=== PATIENT | female | born 1970 | race Caucasian/White ===

== ENCOUNTER 2023-05-31 13:58 | Inpatient (IN) | payer BC, SELFPAY ==
[2023-05-31] VITALS (9 sets, daily range): BP systolic 113–151; BP diastolic 55–106; PULSE 86–105; RESP 16–21; TEMP 36.6–37.7; O2SAT 90–98; BMI 40.2
--- NOTE | 2023-05-31 18:47 | ED.GENADULT ---
HPI - General Adult General Date Seen: 05/31/23 Chief complaint: Laceration/Wound Stated complaint: L leg wound draining-sent from Time Seen by Provider: 05/31/23 18:25 History of Present Illness HPI narrative: This is a previously healthy 52-year-old female who is referred to the ER today from the [facility] our urgent care for evaluation of a infection of the cutaneous tissue of her left upper inner thigh. Per the notes from [facility] urgent care 05/31, Notes from all [facility] Urgent Care, Dr. Mckinney from 05/31-today. Ellie Odonnell is a 52 y.o. female who presents for a possible infection and bump on her left inner thigh. She reports that 5 days ago that while in the shower she noticed a red bump on inner thigh the size of a pencil eraser. She thought it was an ingrown hair so she squeezed it. It flattened and she thought it would resolve on its own. However it continued to be bothersome and the next couple of days she had chills and body aches and felt very fatigued and unwell, did not want to get out of bed. She had no URI symptoms. So yesterday she did a televisit and was started on clindamycin for a skin infection but was instructed to be seen in person. ? Today she tells me that it is worsening overall. She has significant redness and firmness in her left inner thigh. The redness had been extending all the way down to her knee but that has shrunk up several inches now. However the firm mass underneath the skin is extending from her entire anterior aspect of her left thigh into the groin nearing the perineum and this is making her nervous. She has been on routine Tylenol and Motrin to help with malaise but still does not feel very well. She denies candy fevers but has been on antipyretics this entire time. She noticed that the wound is draining and it is very odorous. She denies any history of cellulitis or MRSA. Exam: Skin: Significant flat erythema diffusely over inner aspect of entire left thigh extending midway down her thigh. This area is warm. She has a palpable subcutaneous mass with depth and girth and discrete borders that is parallel to her left groin extending from just below her left hip bone all the way near her perineum, about 6 inches in length and 3 inches in width from what I can tell on superficial palpation. It is tender to palpation. She does have an open wound in the middle of this area, about 3 mm in diameter that is draining clear yellow odorous fluid which I did culture. No other rash or abnormalities noted on exposed skin. exam consistent with significant cellulitis and concerning for underlying abscess. Symptoms have progressed rapidly and she has been feeling unwell for several days. She has not had significant improvement with several doses of clindamycin, which is not surprising, yet the underlying mass has been enlarging per the patient. She is not febrile here but she is tachycardic and has been taking Tylenol and Motrin routinely. She does not feel well. I am concerned that she is failing outpatient therapy and she is worsening quickly. We discussed this in depth. I feel that she needs a higher level of care and imaging to evaluate for possible underlying abscess as there is no superficial abscess for me to drain today. She is in agreement with this and will drive to [facility] ER for further evaluation. Patient has no history of MRSA or immunodeficiency. She noticed that she had a small bump on her proximal left medial inner thigh a couple of days ago. She squeezed the bump in express some purulent fluid from it. Since then she has had ongoing symptoms infection. Has been mildly uncomfortable. She did have some mild chills and some fatigue over the weekend. She was much sleepier than normal. No fevers. No rigors. She noted a small area of redness around the area where she had squeeze the bump that began a couple of days ago. It was beginning to get bigger yesterday. She was seen in the [facility] urgent care and put on clindamycin. She had 2 doses of oral clindamycin yesterday and 2 more doses this morning. Despite that the area of redness on her leg has been spreading. She is now bright red essentially from her groin all the way down to her knee. Today she is actually feeling systemically better. She is not as fatigued or sleepy. She is not having any chills. She went back to the urgent care today and because the redness was still spreading despite the antibiotics. She was referred here to the ER for further evaluation with suspicion for possible abscess. She has no history of diabetes, cancer, chemo, immunosuppression. No history of MRSA. No other symptoms. No abdominal pain. No rash on her abdomen or buttock. No rash on the right leg Related Data Home Medications Medication Instructions Recorded Confirmed clindamycin HCl 300 mg capsule 300 mg PO 3XD 05/31/23 05/31/23 rosuvastatin 10 mg tablet 10 mg PO QPM 05/31/23 05/31/23 Allergies Allergy/AdvReac Type Severity Reaction Status Date / Time amoxicillin Allergy Hives Verified 05/31/23 14:13 [facility] Social History Smoking Status: Never smoker Non-prescribed substance use: denies use Exam Narrative: Exam Narrative: Constitutional: Appears well-developed and well-nourished. Alert. Conversant. Non toxic. HENT: Head: Atraumatic. Nose: Nose normal. Mouth/Throat: Oral mucosa is clear and moist. no trismus. Pharynx normal. Tonsils symmetric. No tonsillar enlargement, erythema, or exudate. Eyes: Conjunctivae normal. EOM normal. Pupils equal, round, and reactive to light. No scleral icterus. Neck: Normal range of motion. Neck supple. No tracheal deviation present. Cardiovascular: Normal rate, regular rhythm. No gallop. No friction rub. No murmur heard. Symmetric radial artery pulses Pulmonary/Chest: Effort normal. No stridor. No respiratory distress. No wheezes. No rales. No rhonchi . No tenderness. Abdominal: Soft. Bowel sounds normal. No distension. No mass. No tenderness. No rebound. No guarding. Musculoskeletal: RUE: Normal range of motion. No tenderness. No deformity LUE: Normal range of motion. No tenderness. No deformity RLE: Normal range of motion. No edema. No tenderness. No deformity LLE: Normal range of motion. No edema. No tenderness. No deformity Lymph: No cervical adenopathy. Neurological: Alert and oriented to person, place, and time. Normal strength. CN II-VII intact. No sensory deficit. GCS eye subscore is 4. GCS verbal subscore is 5. GCS motor subscore is 6. Normal coordination Skin: Initial exam performed in the ER hallway bed because the ER was full. Best efforts were taken to respect the patient's modesty. Patient has bright red erythema of her left thigh especially on the medial aspect as from her inguinal crease and groin all the way down almost to her knee. There is a couple of small areas of blistering on the skin. No definite pustules. At the proximal into the thigh about 3-4 cm distal to the groin crease there is a small 1 cm area of opening that is draining a small amount of some yellow purulent liquid he fluid. In palpating around that area there is roughly a 4 x 10 cm area of firm indurated tissue but no definite fluctuance. No gas or crepitus in the soft tissue. There is no redness above the groin crease/inguinal ligament. The redness does wrap around the medial thigh. It does not involve the back of her leg or buttock. Skin is warm and dry. No rash noted. No pallor. Normal capillary refill. Psychiatric: Normal mood. Normal affect. Const: Vital Signs, click to edit/add: Vital Signs - 24 hr 05/31/23 14:06 05/31/23 21:37 Temperature 99.9 F H 97.9 F Pulse Rate [Pulse Oximeter] 98 105 H Respiratory Rate 16 16 Blood Pressure [Ri ght Upper Arm] 151/79 H 148/70 H Pulse Oximetry 97 98 Oxygen Delivery Me thod Room Air Room Air Course Vital Signs Vital signs: Initial Vital Signs Temperature 99.9 F H 05/31/23 14:06 Temperature Source Temporal Artery Scan 05/31/23 14:06 Pulse Rate 98 05/31/23 14:06 Respiratory Rate 16 05/31/23 14:06 Blood Pressure 151/79 H 05/31/23 14:06 Blood Pressure Mean 103 05/31/23 14:06 Blood Pressure Position Sitting 05/31/23 14:06 Pulse Oximetry 97 05/31/23 14:06 Oxygen Delivery Method Room Air 05/31/23 14:06 Vital Signs Temperature 99.9 F H 05/31/23 14:06 Pulse Rate 98 05/31/23 14:06 Respiratory Rate 16 05/31/23 14:06 Blood Pressure 151/79 H 05/31/23 14:06 Pulse Oximetry 97 05/31/23 14:06 Oxygen Delivery Method Room Air 05/31/23 14:06 Temperature 97.9 F 05/31/23 21:37 Pulse Rate 105 H 05/31/23 21:37 Respiratory Rate 16 05/31/23 21:37 Blood Pressure 148/70 H 05/31/23 21:37 Pulse Oximetry 98 12/05/23 21:37 Oxygen Delivery Method Room Air 05/31/23 21:37 Medications Administered Medications: Generic Name Dose Route Start Last Admin Trade Name Sebas PRN Reason Stop Dose Admin Ceftriaxone Sodium 1 gm/ 100 mls @ 200 mls/hr 05/31/23 19:00 05/31/23 20:49 Sodium Chloride IVPB Infused Q24H JYOTI Infusion Discontinued Medications Generic Name Dose Route Start Last Admin Trade Name Sebas PRN Reason Stop Dose Admin Clindamycin Phosphate 900 mg 05/31/23 21:14 05/31/23 22:44 Clindamycin 900 Mg/50 Ml-D5w IVPB 05/31/23 21:15 900 mg ONCE ONE Administration Sodium Chloride 1,000 mls @ 1,000 mls/hr 05/31/23 19:00 05/31/23 20:18 0.9 % Sodium Chloride 1000 Ml IV 05/31/23 19:59 1,000 mls/hr .Q1H JYOTI Administration Vancomycin HCl 2,000 mg/ 520 mls @ 260 mls/hr 05/31/23 18:59 05/31/23 20:48 Sodium Chloride IVPB 05/31/23 19:00 260 mls/hr ONCE ONE Administration Protocol Medical Decision Making MDM Narrative Medical decision making narrative: Very pleasant previously healthy 52-year-old female presenting to the ER today for redness and swelling of her left thigh that began a couple of days ago. She has already been on about 24 hours of oral clindamycin but despite that therapy is getting worse. Initial concern here was for possible cellulitis with a resistant pathogen versus possible abscess needing drainage. On my initial exam I did not appreciate any definite fluctuance or crepitus in the soft tissue. Bedside ultrasound was negative for abscess. Because of the extent of the redness and the or widespread we did establish an IV and check labs. We also obtain CT scan of her thigh to further evaluate for possible deeper soft tissue infection. She has a mild leukocytosis and a mild hyponatremia with a sodium of 134. On my read, CT scan shows evidence for gas in the soft tissue, concerning for a necrotizing soft tissue infection. Immediately upon identifying this finding I contacted our surgeon, Dr. Dexter. She reviewed the images and agrees. She will come here to the ER for emergent surgical debridement. At the time of this dictation we are still awaiting the radiologist interpretation of her CT. At this point although she has a low-grade fever and leukocytosis she has stable blood pressure. She has mild tachycardia but no evidence for septic shock. Discussed with the patient in person, and her , by phone, about the concerning findings on the CT and the need for urgent surgical debridement of the necrotic tissue. They agree and verbalized their consent. We discussed possible transfer to a tertiary care center for an infection such as this. However my advice would be that she at least have the Urgent initial surgical debridement to done here because it would likely take many hours in order to affect transfer and get her to the OR in the [facility]. That may be an unreasonable delay. There are any has been delay while she was waiting here in the ER lobby before I could see her today. They verbalized her understanding and agreement. She will be going to the OR with Dr. Dubon, roughly 10:00 p.m.. Patient was transferred to the OR for surgical debridement before formal CT report came back from Radiology. Lab Data Labs: Lab Results 05/31/23 05/31/23 Range/Units 13:35 18:59 WBC 17.22 H (4.50-11.00) K/uL RBC 4.12 (4.00-5.20) m/uL Hgb 12.7 (12.0-16.0) gm/dL Hct 38.0 (33.0-51.0) % MCV 92 (80-100) fL MCH 31 (26-34) pg MCHC 33 (32-36) gm/dL RDW Coeff of Tyra 13.3 (11.5-15.5) % Plt Count 231 (140-440) K/uL Neut % (Auto) 81.5 H (42.0-72.0) % Lymph % (Auto) 9.3 L (20-44) % [place] % (Auto) 7.4 (0.0-11.0) % Eos % (Auto) 1.3 (0.0-7.0) % Baso % (Auto) 0.3 (0.0-3.0) % Neut # (Auto) 14.00 H (1.7-7.0) K/uL Lymph # (Auto) 1.60 (0.90-2.90) K/uL [place] # (Auto) 1.30 H (0.00-0.90) K/UL Eos # (Auto) 0.20 (0.00-0.50) K/uL Baso # (Auto) 0.10 (0.00-0.30) K/uL Abs Immat Gran (auto) 0.00 (0.00-0.30) K/uL Imm/Tot Granulo (auto) 0.2 % Sodium 134 L (135-149) mmol/L Potassium 3.5 L (3.6-5.1) mmol/L Chloride 104 (96-114) mmol/L Carbon Dioxide 23 (20-32) mmol/L Anion Gap 7 (7-15) mEq/L BUN 10 (7-30) mg/dL Creatinine 0.5 (0.5-1.5) mg/dL Estimated Creat Clear 142.33 Estimated GFR 113 ml/min Glucose 112 (60-115) mg/dL Lactate 0.9 (0.5-1.9) mmol/L Calcium 8.5 (8.4-10.6) mg/dL Imaging Data CT left femur/thigh: Attestation: I have reviewed the pertinent imaging results. My impression: Soft tissue stranding in the left medial thigh as well as soft tissue subcutaneous emphysema, concerning for necrotizing infection. I contacted surgery, Dr. Dexter immediately upon reviewing the images myself. She reviewed the images and agrees. She came expeditiously here to the ER to take the patient for surgical debridement. Subsequently formal radiology report came back from x-ray. At that point the patient was already in the OR. Radiologist's impression: Findings: There is medial skin thickening superiorly in the left leg with subcutaneous edema. Subcutaneous air also present in the upper medial 5. No deep tissue inflammation. No fluid collection to suggest abscess. No sign of osteomyelitis or other osseous abnormality. Impression: Cellulitis in the upper medial left thigh with subcutaneous edema and air suggesting the possibility of necrotizing tissue. No deep tissue inflammation and no abscess. Discharge Plan Discharge Clinical Impression: Necrotizing soft tissue infection, Acute hyponatremia Procedures Ultrasound Skin/Soft Tissue exam #1: Anatomical areas examined: Left thigh Indications: soft tissue pain, soft tissue swelling and soft tissue redness Exam type: limited soft tissue ultrasound Findings: other (There does appear to be some vague hypoechoic material in the soft tissue but no discrete abscess or drainable fluid collection.) Impression: cellulitis (Images saved to the ultrasound hard dry.)
--- NOTE | 2023-05-31 19:42 | CRLHL7_ITS ---
For Patients: As a result of the Cures Act, medical imaging exams and procedure reports are released immediately into your electronic medical record. You may view this report before your referring provider. If you have questions, please contact your health care provider. Indication: Left thigh swelling and redness. Technique: CT extremity left femur with 137 cc Isovue 370 IV contrast. Comparison: None. Findings: There is medial skin thickening superiorly in the left leg with subcutaneous edema. Subcutaneous air also present in the upper medial 5. No deep tissue inflammation. No fluid collection to suggest abscess. No sign of osteomyelitis or other osseous abnormality. Impression: Cellulitis in the upper medial left thigh with subcutaneous edema and air suggesting the possibility of necrotizing tissue. No deep tissue inflammation and no abscess. Please note that all CT scans at this facility use dose modulation, iterative reconstruction, and/or weight-based dosing when appropriate to reduce radiation dose to as low as reasonably achievable. Dictated by Sebastien Kumar MD @ 05/31/2023 10:35:08 PM (Electronically Signed)
[2023-05-31 19:51] LABS: Lactate* 0.9 mmol/L (0.5-1.9)
[2023-05-31 19:52] LABS: Basophils Percent Auto 0.3 % (0.0-3.0); Eosinophils Percent Auto 1.3 % (0.0-7.0); Hemoglobin* 12.7 gm/dL (12.0-16.0); Immature Granulocytes Pct Auto 0.2 %; Lymphocytes Percent Auto 9.3 % (20-44); Mean Corpuscular HGB Conc 33 gm/dL (32-36); Mean Corpuscular Hemoglobin 31 pg (26-34); Mean Corpuscular Volume 92 fL (80-100); Monocytes Percent Auto 7.4 % (0.0-11.0); Neutrophils Percent Auto 81.5 % (42.0-72.0); Platelet Count* 231 K/uL (140-440); RDW Coefficient of Variation % 13.3 % (11.5-15.5); Red Blood Count 4.12 m/uL (4.00-5.20); White Blood Count* 17.22 K/uL (4.50-11.00)
[2023-05-31 20:09] LABS: Chloride* 104 mmol/L (96-114); Potassium* 3.5 mmol/L (3.6-5.1); Sodium* 134 mmol/L (135-149)
[2023-05-31 20:11] LABS: Creatinine* 0.5 mg/dL (0.5-1.5); Est. Creatinine Clearance* 142.33; Estimated Glomerular Filt Rate 113 ml/min
[2023-05-31 20:12] LABS: Anion Gap 7 mEq/L (7-15); Blood Urea Nitrogen* 10 mg/dL (7-30); Carbon Dioxide* 23 mmol/L (20-32); Glucose* 112 mg/dL (60-115)
[2023-05-31 20:13] LABS: Calcium* 8.5 mg/dL (8.4-10.6)
[2023-05-31 20:15] LABS: Slide Review Reflex No
[2023-05-31] MEDS: cefTRIAXone 1 GM in 0.9 % SODIUM CHLORIDE Mini-bag 100 ML IVPB (20:18)
[2023-05-31] MEDS: 0.9 % SODIUM CHLORIDE 1000 ml 1,000 ML IV (20:18)
--- NOTE | 2023-05-31 22:16 | PM.GSHP ---
History of Present Illness History of Present Illness Date Seen: 05/31/23 Chief complaint: L leg wound draining-sent from Narrative: Ellie Odonnell is a 52 year old female who presented to the emergency department with rapidly expanding infection of the upper left thigh. She states that on Tuesday she 1st noticed a bump of her upper thigh. On Tuesday there was a small pimple about the size of the top of an eraser in the area. She initially thought this was an ingrown hair in try to squeeze the pimple, but was unable to pop it. On Tuesday she started to have fever/chills at home. She also notice that there was a rapidly expanding area of redness on her leg. She did have some pain to the area, but this did not require any pain medication and she was still able to walk without difficulty. She did a telemedicine visit on Tuesday and was prescribed some oral clindamycin. She started to take the antibiotic, but felt like things were still getting worse so presented to her primary care provider earlier today. Her primary care provider then advised her to go to the emergency department for further evaluation. She has never had anything like this before. No personal history of diabetes. She is otherwise healthy. Review of Systems Status of ROS: Reports: 10 or more systems reviewed and unremarkable except as noted in History and below PFSH PFSH Social History Smoking Status: Never smoker Non-prescribed substance use: denies use Meds Home Medications and Allergies Home Medications Medication Instructions Recorded Confirmed Type clindamycin HCl 300 mg capsule 300 mg PO 3XD 05/31/23 05/31/23 History rosuvastatin 10 mg tablet 10 mg PO QPM 05/31/23 05/31/23 History Allergies Allergy/AdvReac Type Severity Reaction Status Date / Time amoxicillin Allergy Hives Verified 05/31/23 14:13 Exam Narrative: Exam Narrative: General: Alert and oriented, nontoxic in appearance Respiratory: Equal breath rise, maintained on room air CV: Well perfused, regular rhythm and rate Extremities: Left upper thigh significant erythema and induration going from just above the knee to the groin. Near the groin is a 6 cm area of significant induration and firmness. There was also a pinpoint opening with some purulent drainage noted. Area is hot to the touch and tender for the patient. Const: Vital Signs, click to edit/add: Vital Signs - 24 hr 05/31/23 14:06 05/31/23 21:37 Temperature 99.9 F H 97.9 F Pulse Rate [Pulse Oximeter] 98 105 H Respiratory Rate 16 16 Blood Pressure [Ri ght Upper Arm] 151/79 H 148/70 H Pulse Oximetry 97 98 Oxygen Delivery Me thod Room Air Room Air Results Results Labs: Leukocytosis (17). Mild hyponatremia sodium 134. Additional studies: CT of the left leg: The still waiting radiology review. Imaging was reviewed by myself with evidence of edema and cellulitic changes from just above the knee to the groin. Near the groin is gas within the subcutaneous tissues, concerning for a necrotizing infection. Assessment and Plan Assessment and plan (1) Necrotizing soft tissue infection: Status: Acute Plan Patient is a 52-year-old female with clinical history and workup concerning for a necrotizing soft tissue infection. This was discussed at length the patient and her . Recommendations at this time are to emergently go to the operating room for excisional debridement and washout of the affected area. Risks and benefits of operative intervention were discussed at length with the patient. Risks included, but were not limited to: Bleeding, infection, risk of damage to surrounding structures and possible need for additional procedures. She has been started on broad-spectrum IV antibiotics in the emergency department, will plan to continue these while she is in the hospital. Will also consult the hospitalist service. -NPO -will plan to write for admission orders postoperatively -patient to go emergently to the operating room for excisional debridement, left thigh.
[2023-05-31] MEDS: CLINDAMYCIN 900 MG/50 ML-D5W IVPB (22:44)
--- NOTE | 2023-05-31 23:04 | P.ANES_ITS ---
Anesthesia Charges Start Date/Time Anesthesia Start Date: 05/31/23 Anesthesia Start Time: 22:27 Stop Date/Time Anesthesia Stop Date: 05/31/23 Anesthesia Stop Time: 23:32 Summary Emergency: [employer]
--- NOTE | 2023-05-31 23:35 | PM.GSPRC ---
Operative Note Pre-op diagnosis: Necrotizing soft tissue infection, left thigh Post-op diagnosis: Same Type of Procedure: Excision all debridement and washout, left thigh infection Indications: Patient is a 52-year-old female who presented to the emergency department with a rapidly worsening infection of the left medial thigh. Clinical history and workup concerning for possible necrotizing soft tissue infection. Recommendations to proceed emergently to the operating room for washout. Risks and benefits of the procedure were discussed at length with the patient and her . All questions were addressed with patient agreeing to proceed. Procedure Description: After discussing the risks and benefits of the procedure, the patient signed informed consent.? The operative site was marked and the patient was brought to the operating room and placed on the operating table in supine position.? Care was taken to pad the patient's pressure points.?? The patient was then intubated by anesthesia.?? The operative site was then prepped and draped in the usual sterile fashion.? A time-out was then performed. On the left medial upper thigh an area of significant induration was appreciated with a pinpoint opening of foul smelling, purulent drainage noted. A culture was obtained from this and sent for anaerobic/aerobic and Gram stain. A cruciate incision was made over this area. Blunt dissection was utilized to define the underlying abscess cavity. A moderate amount of dishwater fluid was obtained from the underlying subcutaneous tissue. The incision was then extended medial and lateral to evaluate the infection further. All necrotic subcutaneous fat was removed with sharp debridement down to healthy, bleeding tissue. The wound extended inferiorly about 3 cm and superiorly 4 cm. No evidence of fascial or muscle involvement. All cavities were connected through blunt and sharp dissection. The cavity was irrigated with the Pulsavac, 3 L normal saline. Hemostasis was assured with electrocautery. The resulting wound measured 9 cm by 3 cm by 4 cm deep. There is 3 cm of undermining inferior and 4 cm of undermining superior. The wound was packed with Vashe soaked gauze and an outer Mepilex applied. Sterile dressings were then applied. ? The patient was then woken and transported to the recovery area in stable condition. ? The patient tolerated the procedure well. Findings: Necrotizing soft tissue infection of the left medial thigh. Anesthesia: GETA Surgeon: Mallory Dexter MD Estimated blood loss (mL): 5 Additional Specimen Information: Wound culture Condition: stable Disposition: PACU Date of procedure: 12/05/23
[2023-06-01] VITALS (16 sets, daily range): BP systolic 104–153; BP diastolic 62–93; PULSE 69–93; RESP 16–22; TEMP 36.3–36.8; O2SAT 91–96; BMI 40.7
--- NOTE | 2023-06-01 00:18 | SUR.PHASEI ---
patient met discharge criteria per anesthesia
[2023-06-01] MEDS: ACETAMINOPHEN 325 MG TABLET 650 MG PO ×3 (01:52→21:46)
[2023-06-01] MEDS: 0.9 % SODIUM CHLORIDE 1000 ml 1,000 ML 125 ML IV (01:53)
[2023-06-01] MEDS: CLINDAMYCIN 900 MG/50 ML-D5W IVPB ×3 (06:10→22:54)
[2023-06-01 06:50] LABS: Basophils Percent Auto 0.2 % (0.0-3.0); Eosinophils Percent Auto 0.1 % (0.0-7.0); Hematocrit 34.6 % (33.0-51.0); Hemoglobin* 11.3 gm/dL (12.0-16.0); Immature Granulocytes Pct Auto 0.4 %; Lymphocytes Percent Auto 4.2 % (20-44); Mean Corpuscular HGB Conc 33 gm/dL (32-36); Mean Corpuscular Hemoglobin 31 pg (26-34); Mean Corpuscular Volume 94 fL (80-100); Monocytes Percent Auto 4.6 % (0.0-11.0); Neutrophils Percent Auto 90.5 % (42.0-72.0); Platelet Count* 200 K/uL (140-440); RDW Coefficient of Variation % 13.3 % (11.5-15.5); Red Blood Count 3.68 m/uL (4.00-5.20); White Blood Count* 17.54 K/uL (4.50-11.00)
[2023-06-01 07:07] LABS: Chloride* 110 mmol/L (96-114); Sodium* 137 mmol/L (135-149)
[2023-06-01 07:10] LABS: Anion Gap 5 mEq/L (7-15); Blood Urea Nitrogen* 9 mg/dL (7-30); Carbon Dioxide* 22 mmol/L (20-32); Creatinine* 0.5 mg/dL (0.5-1.5); Est. Creatinine Clearance* 142.33; Estimated Glomerular Filt Rate 113 ml/min
[2023-06-01 07:11] LABS: Glucose* 143 mg/dL (60-115); Slide Review Reflex No
[2023-06-01] MEDS: OXYCODONE 5 MG TABLET PO (08:25)
--- NOTE | 2023-06-01 10:31 | PM.GSPN ---
Subjective Subjective Date Seen: 06/01/23 Interval history: Patient had an ok night. Denies any fever or chills. Is having some discomfort of the leg, but controlled with pain meds. Hungry this morning. Has been walking around her room. No other concerns. Large amount of drainage from the wound requiring outer dressing change. Exam Narrative: Exam Narrative: Gen: alert and oriented, NAD. Non toxic Extremities: Left upper medial thigh dressings taken down. Wound with some scattered fat necrosis, no undrained fluid pockets. Slight odor to wound. Surrounding cellulitis outlined and does appear to be receding. Const: Vital Signs, click to edit/add: Vital Signs - 24 hr 05/31/23 14:06 05/31/23 21:37 05/31/23 23:29 Temperature 99.9 F H 97.9 F 97.8 F Pulse Rate 90 Pulse Rate [Pulse Oximeter] 98 105 H Pulse Rate [Right Pulse Oximeter] Respiratory Rate 16 16 20 Blood Pressure 140/106 H Blood Pressure [Le ft Radial Artery] Blood Pressure [Ri ght Upper Arm] 151/79 H 148/70 H Pulse Oximetry 97 98 96 Oxygen Delivery Me thod Room Air Room Air OxyMask Oxygen Flow Rate 10 05/31/23 23:32 05/31/23 23:35 05/31/23 23:40 Temperature 97.8 F 97.8 F 97.8 F Pulse Rate 90 86 88 Pulse Rate [Pulse Oximeter] Pulse Rate [Right Pulse Oximeter] Respiratory Rate 18 18 21 Blood Pressure 113/69 117/55 L 118/74 Blood Pressure [Le ft Radial Artery] Blood Pressure [Ri ght Upper Arm] Pulse Oximetry 96 95 91 Oxygen Delivery Me thod OxyMask OxyMask OxyMask Oxygen Flow Rate 10 10 10 05/31/23 23:45 05/31/23 23:50 05/31/23 23:55 Temperature 97.8 F 97.8 F 97.8 F Pulse Rate 88 92 92 Pulse Rate [Pulse Oximeter] Pulse Rate [Right Pulse Oximeter] Respiratory Rate 21 19 20 Blood Pressure 118/74 133/72 142/79 H Blood Pressure [Le ft Radial Artery] Blood Pressure [Ri ght Upper Arm] Pulse Oximetry 91 90 90 Oxygen Delivery Me thod OxyMask Nasal Cannula Nasal Cannula Oxygen Flow Rate 10 4 6 06/01/23 00:00 06/01/23 00:20 06/01/23 00:20 Temperature 97.5 F L 98.3 F 98.3 F Pulse Rate 92 Pulse Rate [Pulse Oximeter] Pulse Rate [Right Pulse Oximeter] 83 83 Respiratory Rate 22 18 18 Blood Pressure 141/73 H Blood Pressure [Le ft Radial Artery] 120/80 120/80 Blood Pressure [Ri ght Upper Arm] Pulse Oximetry 93 92 Oxygen Delivery Me thod Nasal Cannula Nasal Cannula Nasal Cannula Oxygen Flow Rate 4 4 4 06/01/23 00:39 06/01/23 00:54 06/01/23 01:09 Temperature Pulse Rate Pulse Rate [Pulse Oximeter] Pulse Rate [Right Pulse Oximeter] 82 83 82 Respiratory Rate 18 Blood Pressure Blood Pressure [Le ft Radial Artery] 122/72 123/81 122/79 Blood Pressure [Ri ght Upper Arm] Pulse Oximetry Oxygen Delivery Me thod Nasal Cannula Nasal Cannula Nasal Cannula Oxygen Flow Rate 4 4 4 06/01/23 01:24 06/01/23 01:24 06/01/23 01:24 Temperature Pulse Rate Pulse Rate [Pulse Oximeter] Pulse Rate [Right Pulse Oximeter] 79 79 Respiratory Rate 18 18 18 Blood Pressure Blood Pressure [Le ft Radial Artery] 122/68 122/68 Blood Pressure [Ri ght Upper Arm] Pulse Oximetry 96 92 96 Oxygen Delivery Me thod Nasal Cannula Nasal Cannula Nasal Cannula Oxygen Flow Rate 2 4 2 06/01/23 02:09 06/01/23 02:39 06/01/23 02:39 Temperature 97.8 F 97.9 F 97.9 F Pulse Rate Pulse Rate [Pulse Oximeter] Pulse Rate [Right Pulse Oximeter] 84 78 78 Respiratory Rate 16 16 16 Blood Pressure Blood Pressure [Le ft Radial Artery] 127/77 104/68 104/68 Blood Pressure [Ri ght Upper Arm] Pulse Oximetry 91 92 92 Oxygen Delivery Me thod Room Air Room Air Room Air Oxygen Flow Rate 06/01/23 04:20 06/01/23 05:20 06/01/23 06:09 Temperature 97.3 F L Pulse Rate Pulse Rate [Pulse Oximeter] Pulse Rate [Right Pulse Oximeter] 78 69 79 Respiratory Rate 16 18 Blood Pressure Blood Pressure [Le ft Radial Artery] 129/73 122/72 118/71 Blood Pressure [Ri ght Upper Arm] Pulse Oximetry 94 92 Oxygen Delivery Me thod Room Air Room Air Room Air Oxygen Flow Rate 06/01/23 07:00 06/01/23 07:00 Temperature 98.0 F Pulse Rate Pulse Rate [Pulse Oximeter] Pulse Rate [Right Pulse Oximeter] 93 93 Respiratory Rate 18 18 Blood Pressure Blood Pressure [Le ft Radial Artery] 153/93 H Blood Pressure [Ri ght Upper Arm] Pulse Oximetry 95 Oxygen Delivery Me thod Room Air Oxygen Flow Rate Labs/Imaging Labs Labs: Leukocytosis (17) Progress Note: A&P Assessment and plan (1) Necrotizing soft tissue infection: Status: Acute Assessment and Plan: Patient is POD1 Excisional debridement and washout left medial thigh soft tissue necrotizing infection. Dressings taken down. Does still have some scattered areas of fat necrosis (<10% wound bed), slight odor but overall appearance ok with no need for OR debridement today. Cellulitis is receding. Will continue with BID dressing changes, MD to change in the morning and nursing at night. Gram stain shows Gram pos cocci. Afebrile and VSS. Leukocytosis stable. Hospitalist consulted and appreciate their assistance with antibiotic management. - regular diet, will make patient NPO again at midnight with plan to reassess in the am - BID dressing changes; cleanse wound bed with normal saline. Apply a wet dressing of Vashe soaked Kerlix (one single long piece- make sure to pack superior and inferior in undermined areas). - will continue with Vancomycin and Clindamycin, received Imipenem in the ED- will hold for now. Consult to hospitalist regarding antibiotics - trend fever curve and CBC - encourage ambulation
--- NOTE | 2023-06-01 11:29 | P.IMPN_ITS ---
Progress Note: A&P Assessment and plan (1) Necrotizing soft tissue infection: Status: Acute Plan 1. Necrotizing soft tissue infection, left thigh s/p Excision all debridement and washout, left thigh infection; General Anesthesia; EBL 5 cc -pain control; diet; dvt ppx per surgery -continue IV antibiotics -f/u Cx -will discuss with Infectious Disease once cultures/sensitivities are final for antibiotic regimen/duration 2. Hyponatremia; resolved; Sodium 137 toda 3. Hx of HLD; hold statin for now Subjective Date Seen: 06/01/23 Interval history: CC: L leg wound draining-sent from Pre-op diagnosis: Necrotizing soft tissue infection, left thigh Post-op diagnosis: Same Type of Procedure: Excision all debridement and washout, left thigh infection General Anesthesia EBL 5 cc Patient seen this morning twice; initially with Dr. Dexter Pt had wound cleaned and repacked Pt currently at bedside She has no hx of Diabetes Pain controlled tolerating diet Exam Narrative: Exam Narrative: Gen: no acute distress HEENT: NCAT EOMI mmm Neck: Supple CV: RRR normal s1 s2 Lungs: CTAB Abd: Soft,nt, nd Neuro: Alert, oriented, CN grossly intact; nonfocal screening?exam Psych: appropriate affect MSK: age appropriate muscle mass Skin; Warm, dry no rash on face 9 cm by 3 cm by 4 cm deep wound left medial thigh Const: Vital Signs, click to edit/add: Vital Signs - 24 hr 05/31/23 14:06 05/31/23 21:37 05/31/23 23:29 Temperature 99.9 F H 97.9 F 97.8 F Pulse Rate 90 Pulse Rate [Pulse Oximeter] 98 105 H Pulse Rate [Right Pulse Oximeter] Respiratory Rate 16 16 20 Blood Pressure 140/106 H Blood Pressure [Le ft Radial Artery] Blood Pressure [Ri ght Upper Arm] 151/79 H 148/70 H Pulse Oximetry 97 98 96 Oxygen Delivery Me thod Room Air Room Air OxyMask Oxygen Flow Rate 10 05/31/23 23:32 05/31/23 23:35 05/31/23 23:40 Temperature 97.8 F 97.8 F 97.8 F Pulse Rate 90 86 88 Pulse Rate [Pulse Oximeter] Pulse Rate [Right Pulse Oximeter] Respiratory Rate 18 18 21 Blood Pressure 113/69 117/55 L 118/74 Blood Pressure [Le ft Radial Artery] Blood Pressure [Ri ght Upper Arm] Pulse Oximetry 96 95 91 Oxygen Delivery Me thod OxyMask OxyMask OxyMask Oxygen Flow Rate 10 10 10 05/31/23 23:45 05/31/23 23:50 05/31/23 23:55 Temperature 97.8 F 97.8 F 97.8 F Pulse Rate 88 92 92 Pulse Rate [Pulse Oximeter] Pulse Rate [Right Pulse Oximeter] Respiratory Rate 21 19 20 Blood Pressure 118/74 133/72 142/79 H Blood Pressure [Le ft Radial Artery] Blood Pressure [Ri ght Upper Arm] Pulse Oximetry 91 90 90 Oxygen Delivery Me thod OxyMask Nasal Cannula Nasal Cannula Oxygen Flow Rate 10 4 6 06/01/23 00:00 06/01/23 00:20 06/01/23 00:20 Temperature 97.5 F L 98.3 F 98.3 F Pulse Rate 92 Pulse Rate [Pulse Oximeter] Pulse Rate [Right Pulse Oximeter] 83 83 Respiratory Rate 22 18 18 Blood Pressure 141/73 H Blood Pressure [Le ft Radial Artery] 120/80 120/80 Blood Pressure [Ri ght Upper Arm] Pulse Oximetry 93 92 Oxygen Delivery Me thod Nasal Cannula Nasal Cannula Nasal Cannula Oxygen Flow Rate 4 4 4 06/01/23 00:39 06/01/23 00:54 06/01/23 01:09 Temperature Pulse Rate Pulse Rate [Pulse Oximeter] Pulse Rate [Right Pulse Oximeter] 82 83 82 Respiratory Rate 18 Blood Pressure Blood Pressure [Le ft Radial Artery] 122/72 123/81 122/79 Blood Pressure [Ri ght Upper Arm] Pulse Oximetry Oxygen Delivery Me thod Nasal Cannula Nasal Cannula Nasal Cannula Oxygen Flow Rate 4 4 4 06/01/23 01:24 06/01/23 01:24 06/01/23 01:24 Temperature Pulse Rate Pulse Rate [Pulse Oximeter] Pulse Rate [Right Pulse Oximeter] 79 79 Respiratory Rate 18 18 18 Blood Pressure Blood Pressure [Le ft Radial Artery] 122/68 122/68 Blood Pressure [Ri ght Upper Arm] Pulse Oximetry 96 92 96 Oxygen Delivery Me thod Nasal Cannula Nasal Cannula Nasal Cannula Oxygen Flow Rate 2 4 2 06/01/23 02:09 06/01/23 02:39 06/01/23 02:39 Temperature 97.8 F 97.9 F 97.9 F Pulse Rate Pulse Rate [Pulse Oximeter] Pulse Rate [Right Pulse Oximeter] 84 78 78 Respiratory Rate 16 16 16 Blood Pressure Blood Pressure [Le ft Radial Artery] 127/77 104/68 104/68 Blood Pressure [Ri ght Upper Arm] Pulse Oximetry 91 92 92 Oxygen Delivery Me thod Room Air Room Air Room Air Oxygen Flow Rate 06/01/23 04:20 06/01/23 05:20 06/01/23 06:09 Temperature 97.3 F L Pulse Rate Pulse Rate [Pulse Oximeter] Pulse Rate [Right Pulse Oximeter] 78 69 79 Respiratory Rate 16 18 Blood Pressure Blood Pressure [Le ft Radial Artery] 129/73 122/72 118/71 Blood Pressure [Ri ght Upper Arm] Pulse Oximetry 94 92 Oxygen Delivery Ok thod Room Air Room Air Room Air Oxygen Flow Rate 06/01/23 07:00 06/01/23 07:00 Temperature 98.0 F Pulse Rate Pulse Rate [Pulse Oximeter] Pulse Rate [Right Pulse Oximeter] 93 93 Respiratory Rate 18 18 Blood Pressure Blood Pressure [Le ft Radial Artery] 153/93 H Blood Pressure [Ri ght Upper Arm] Pulse Oximetry 95 Oxygen Delivery Ok thod Room Air Oxygen Flow Rate Labs Labs: Laboratory Results - last 24 hr 05/31/23 05/31/23 06/01/23 13:35 18:59 05:45 WBC 17.22 H 17.54 H RBC 4.12 3.68 L Hgb 12.7 11.3 L Hct 38.0 34.6 MCV 92 94 MCH 31 31 MCHC 33 33 RDW Coeff of Tyra 13.3 13.3 Plt Count 231 200 Neut % (Auto) 81.5 H 90.5 H Lymph % (Auto) 9.3 L 4.2 L [place] % (Auto) 7.4 4.6 Eos % (Auto) 1.3 0.1 Baso % (Auto) 0.3 0.2 Neut # (Auto) 14.00 H 15.90 H Lymph # (Auto) 1.60 0.70 L [place] # (Auto) 1.30 H 0.80 Eos # (Auto) 0.20 0.00 Baso # (Auto) 0.10 0.00 Abs Immat Gran (auto) 0.00 0.10 Imm/Tot Granulo (auto) 0.2 0.4 Sodium 134 L 137 Potassium 3.5 L 4.0 Chloride 104 110 Carbon Dioxide 23 22 Anion Gap 7 5 L BUN 10 9 Creatinine 0.5 0.5 Estimated Creat Clear 142.33 142.33 Estimated GFR 113 113 Glucose 112 143 H Lactate 0.9 Calcium 8.5 8.0 L
[2023-06-01] MEDS: KETOROLAC 15 MG/ML inj IVP (13:13)
[2023-06-01] MEDS: HYDROmorphone 0.5 mg/0.5 ml inj IVP (16:42)
--- NOTE | 2023-06-01 19:28 | PC.NURSE ---
End of shift: Patient is alert and oriented x4, cooperative with cares. at bedside throughout the day. Dressing change done at 1700. PRN dilauded administered for pre-medication. Patient tolerated it but stated she was in significant pain and would like to try tylenol and oxy for the AM dressing change. Patient is SL, independent to BR and ambulates well in hallway. Redness to left thigh outlined. Patient remained afebrile this shift. Dressing changes done w/soraya, maisha, 4x4 gauze and covered with ABD pad, and taped. Patient tolerating a reg diet will be NPO at midnight.
[2023-06-01] MEDS: LACTOBACILLUS ACIDOPHILUS 1 TABLET 2 TAB PO (19:38)
[2023-06-02] MEDS: 0.9 % SODIUM CHLORIDE 1000 ml 1,000 ML 125 ML IV ×2 (02:48→09:03)
[2023-06-02 03:00] VITALS: BP 120/70; PULSE 85; RESP 18; TEMP 36.9; O2SAT 92
--- NOTE | 2023-06-02 04:51 | PC.NURSE ---
Shift note: Pt is doing well, alert and oriented. Dressing to the incisional sites changed because it was soaked. Pain has been rated at 5 and requested Tylenol. Pt is very worried about her condition. Education and reassurance given. Vitally stable. NPO status maintained for possible surgery. Ambulated independently in room and hallway. Redness to to left thigh has slightly go beyond the marked area. Abx given as prescribed.
[2023-06-02] MEDS: CLINDAMYCIN 900 MG/50 ML-D5W IVPB ×2 (06:02→14:01)
[2023-06-02 06:58] LABS: Basophils Absolute Auto 0.05 K/uL (0.00-0.30); Basophils Percent Auto 0.5 % (0.0-3.0); Eosinophils Absolute Auto 0.24 K/uL (0.00-0.50); Eosinophils Percent Auto 2.5 % (0.0-7.0); Hematocrit 32.5 % (33.0-51.0); Hemoglobin* 10.6 gm/dL (12.0-16.0); Immature Granulocytes Abs Auto 0.09 K/uL (0.00-0.30); Lymphocytes Percent Auto 17.9 % (20-44); Mean Corpuscular HGB Conc 33 gm/dL (32-36); Mean Corpuscular Hemoglobin 31 pg (26-34); Mean Corpuscular Volume 95 fL (80-100); Monocytes Percent Auto 8.3 % (0.0-11.0); Neutrophils Absolute Auto 6.59 K/uL (1.7-7.0); Neutrophils Percent Auto 69.8 % (42.0-72.0); Platelet Count* 216 K/uL (140-440); RDW Coefficient of Variation % 13.6 % (11.5-15.5); Red Blood Count 3.42 m/uL (4.00-5.20); White Blood Count* 9.44 K/uL (4.50-11.00)
[2023-06-02 07:04] LABS: Slide Review Reflex No
[2023-06-02 07:18] LABS: Chloride* 110 mmol/L (96-114); Sodium* 139 mmol/L (135-149)
[2023-06-02 07:19] LABS: Potassium* 3.7 mmol/L (3.6-5.1)
[2023-06-02 07:21] LABS: Anion Gap 4 mEq/L (7-15); Carbon Dioxide* 25 mmol/L (20-32); Creatinine* 0.6 mg/dL (0.5-1.5); Est. Creatinine Clearance* 118.61; Estimated Glomerular Filt Rate 108 ml/min
[2023-06-02 07:22] LABS: Blood Urea Nitrogen* 9 mg/dL (7-30); Glucose* 100 mg/dL (60-115)
[2023-06-02 08:24] VITALS: BP 124/79; PULSE 85; RESP 16; TEMP 37; O2SAT 95
[2023-06-02] MEDS: ACETAMINOPHEN 325 MG TABLET 650 MG PO ×2 (08:37→17:47)
[2023-06-02] MEDS: IBUPROFEN 600 MG TABLET PO ×2 (08:38→17:49)
[2023-06-02] MEDS: LACTOBACILLUS ACIDOPHILUS 1 TABLET 2 TAB PO ×3 (08:38→17:47)
[2023-06-02] MEDS: OXYCODONE 5 MG TABLET PO ×2 (08:55→20:23)
[2023-06-02 11:15] VITALS: BP 131/61; PULSE 72; RESP 12; TEMP 36.8; O2SAT 95
[2023-06-02] MEDS: LORazepam 2 MG/ML inj 0.5 MG IVP (11:23)
[2023-06-02] MEDS: HYDROmorphone 0.5 mg/0.5 ml inj IVP ×2 (11:24→21:34)
[2023-06-02] MEDS: lidocaine HCL 4 % TOP SOLN 50 ML BOTTLE TOPICAL (11:27)
--- NOTE | 2023-06-02 11:31 | P.IMPN_ITS ---
Progress Note: A&P Assessment and plan (1) Necrotizing soft tissue infection: Status: Acute Plan 1. Necrotizing soft tissue infection, left thigh s/p Excision all debridement and washout, left thigh infection; General Anesthesia; EBL 5 cc -pain control; diet; dvt ppx per surgery -continue IV antibiotics: clindamycin+Imipenem+vanco; once cultures available can discuss antibiotic plan with infectious dx. per lab 05/03 cultures still pending -f/u Cx -will discuss with Infectious Disease once cultures/sensitivities are final for antibiotic regimen/duration -one time dose ativan prior to dressing change 2. Hyponatremia; resolved; 3. Hx of HLD; hold statin for now Subjective Date Seen: 06/02/23 Interval history: no fevers today very anxious this morning tearful; at bedside didnt sleep well called lab: 11:30; cultures are still pending Exam Narrative: Exam Narrative: Gen: no acute distress HEENT: NCAT EOMI mmm CV: RRR normal s1 s2 Lungs: CTAB Abd: Soft,nt, nd Neuro: Alert, oriented, CN grossly intact; nonfocal screening?exam Psych: anxious MSK: age appropriate muscle mass Skin; Warm, dry no rash on face 9 cm by 3 cm by 4 cm deep wound left medial thigh; erythema outlined extending below knee Const: Vital Signs, click to edit/add: Vital Signs - 24 hr 06/01/23 15:00 06/01/23 15:00 06/01/23 19:00 Temperature 98.0 F 98.3 F Pulse Rate [Right Pulse Oximeter] 84 84 86 Respiratory Rate 18 18 18 Blood Pressure [Le ft Radial Artery] 150/70 H 127/76 Pulse Oximetry 94 95 Oxygen Delivery Me thod Room Air Room Air 06/01/23 23:00 06/01/23 23:00 06/02/23 03:00 Temperature 97.9 F 98.5 F Pulse Rate [Right Pulse Oximeter] 81 85 Respiratory Rate 18 18 18 Blood Pressure [Le ft Radial Artery] 133/62 120/70 Pulse Oximetry 95 92 Oxygen Delivery Me thod Room Air Room Air 06/02/23 08:24 06/02/23 08:24 Temperature 98.6 F Pulse Rate [Right Pulse Oximeter] 85 85 Respiratory Rate 16 16 Blood Pressure [Le ft Radial Artery] 124/79 Pulse Oximetry 95 Oxygen Delivery Ia thod Room Air Labs Labs: Laboratory Results - last 24 hr 06/02/23 06:28 WBC 9.44 RBC 3.42 L Hgb 10.6 L Hct 32.5 L MCV 95 MCH 31 MCHC 33 RDW Coeff of Tyra 13.6 Plt Count 216 Neut % (Auto) 69.8 Lymph % (Auto) 17.9 L [place] % (Auto) 8.3 Eos % (Auto) 2.5 Baso % (Auto) 0.5 Neut # (Auto) 6.59 Lymph # (Auto) 1.70 [place] # (Auto) 0.80 Eos # (Auto) 0.24 Baso # (Auto) 0.05 Abs Immat Gran (auto) 0.09 Imm/Tot Granulo (auto) 1.0 Sodium 139 Potassium 3.7 Chloride 110 Carbon Dioxide 25 Anion Gap 4 L BUN 9 Creatinine 0.6 Estimated Creat Clear 118.61 Estimated GFR 108 Glucose 100 Calcium 8.0 L
--- NOTE | 2023-06-02 12:03 | P.GSPN_ITS ---
Subjective Subjective Date Seen: 06/02/23 Interval history: Patient with a lot of anxiety today. Has been doing ok with dressing changes, but requesting IV pain medicine and anti anxiety medicine for this mornings. No fevers overnight. Has been up walking around. Does feel some tightness around the back of her knee. No other concerns. Exam Narrative: Exam Narrative: Gen: alert and oriented, NAD. Non toxic in appearance. Resp: clear breath sounds CV: well perfused Extremities: dressing removed. Less undermining appreciated superior and inferior. No undrained pockets. Unerlying fat with some dullness, no obvious necrosis. No fibrinous exudate and no areas requiring additional debridement. Redness on superior aspect significantly improved, no induration and non tender. Some extension inferior with redness. No new areas of blistering. Const: Vital Signs, click to edit/add: Vital Signs - 24 hr 06/01/23 15:00 06/01/23 15:00 06/01/23 19:00 Temperature 98.0 F 98.3 F Pulse Rate [Right Pulse Oximeter] 84 84 86 Respiratory Rate 18 18 18 Blood Pressure [Le ft Radial Artery] 150/70 H 127/76 Pulse Oximetry 94 95 Oxygen Delivery Me thod Room Air Room Air Oxygen Flow Rate 06/01/23 23:00 06/01/23 23:00 06/02/23 03:00 Temperature 97.9 F 98.5 F Pulse Rate [Right Pulse Oximeter] 81 85 Respiratory Rate 18 18 18 Blood Pressure [Le ft Radial Artery] 133/62 120/70 Pulse Oximetry 95 92 Oxygen Delivery Me thod Room Air Room Air Oxygen Flow Rate 06/02/23 08:24 06/02/23 08:24 06/02/23 11:15 Temperature 98.6 F 98.3 F Pulse Rate [Right Pulse Oximeter] 85 85 72 Respiratory Rate 16 16 12 Blood Pressure [Le ft Radial Artery] 124/79 131/61 Pulse Oximetry 95 95 Oxygen Delivery Me thod Room Air Room Air Oxygen Flow Rate 2 Labs/Imaging Labs Labs: WBC (9) Imaging Imaging: No new imaging Progress Note: A&P Assessment and plan (1) Necrotizing soft tissue infection: Status: Acute Assessment and Plan: Patient is POD2 Excisional debridement and washout left medial thigh soft tissue necrotizing infection. Dressings taken down.Wound is condenser cleaner in appearance compared to yesterday. No need for additional surgical debridement. Will plan for wet to dry dressings today and transition to a wound vac tomorrow. Afebrile, no leukocytosis this morning. Cellulitis overall improved, has had some extension inferior, but suspect this is gravity dependent with patient walking the halls and being more active. Awaiting cultures and ID consult to narrow antibiotics. - regular diet, d/c IVF - BID dressing changes; cleanse wound bed with normal saline. Apply a wet dressing of Vashe soaked Kerlix (one single long piece- make sure to pack superior and inferior in undermined areas) - wound vac application tomorrow - hospitalist is managing antibiotics, continued on broad spectrum and awaiting culture results. - trend fever curve and CBC - encourage ambulation, SCDs for DVT ppx. Lovenox 40mg once daily. Anticipate discharge in next 1-2 days. Will need to set patient up with wound vac changes through the [facility] on a Mon/Wed/Fri schedule. Paperwork has been filled out and will be getting supplies sent to her house. She was instructed to bring all the materials to her scheduled appointment.
[2023-06-02 15:00] VITALS: BP 138/77; PULSE 91; RESP 14; TEMP 36.5; O2SAT 94
--- NOTE | 2023-06-02 18:21 | PC.NURSE ---
End of Shift: Patient pleasant and cooperative. Patient vitally stable, lungs clear, BS WNL, IV SL and intact. Patient independent in room. Patient rates pain this morning 8/10, 10 mg of oxy given in preparation for dressing change. Remainder of day patient has rates pain 3/10, tylenol and ibuprofen given x2 today. Right before dressing change 0.5 Dilaudid, 0.5 mg of Ativan, and topical lidocane given for better pain management of dressing change. Patient had much anxiety this morning in regarding to dressing change pain. Dressing changed performed by surgeon and patient pain tolerable. Patient tolerating regular diet, urinating, and had 2 BM's today. Patient has been walking the halls with this afternoon and evening. New ABD pad applied to wound, as old abd was soiled/wet, serosanguineous drainage. Left thigh is pink and warm and has extended out more in width of thigh.
[2023-06-02 19:00] VITALS: BP 135/86; PULSE 82; RESP 16; TEMP 36.2; O2SAT 96
[2023-06-02] MEDS: diphenhydrAMINE 50 MG/ML inj IVP (22:05)
[2023-06-02 23:00] VITALS: BP 128/60; PULSE 73; PULSE 79; RESP 16; TEMP 36.2; O2SAT 93
[2023-06-03] MEDS: ACETAMINOPHEN 325 MG TABLET 650 MG PO ×3 (00:05→16:45)
[2023-06-03] MEDS: CLINDAMYCIN 900 MG/50 ML-D5W IVPB ×2 (00:34→05:46)
[2023-06-03 03:00] VITALS: BP 128/66; PULSE 83; RESP 16; TEMP 36.6; O2SAT 95
[2023-06-03] MEDS: IBUPROFEN 600 MG TABLET PO (04:26)
--- NOTE | 2023-06-03 05:11 | PC.NURSE ---
Pt A&O, afebrile and VSS overnight. Ambulates independently in her room. Dressing change done last night: Vashe soaked kerlix roll packed in wound > ABD pad > tape. Pt was pre-medicated for drsg change with 10mg oxycodone 60 minutes prior, IV Dilaudid 15 minutes prior and topical lidocaine applied before packing wound. Pt reports this regimen was very effective for pain control & tolerated procedure well. Requested PRN Tylenol x1 dose (last given @ 0005) and PRN Ibuprofen x1 dose (last given @ 0425) for pain control. IV Imipenem, Vancomycin & Clindamycin administered per AUG schedule but took majority of night to administer d/t length of therapy infusions. Pt denies any nausea or SOB. Received IV benadryl x1 dose for sleep aide & reported it being effective. ?
[2023-06-03 07:03] LABS: Basophils Absolute Auto 0.04 K/uL (0.00-0.30); Basophils Percent Auto 0.5 % (0.0-3.0); Eosinophils Absolute Auto 0.33 K/uL (0.00-0.50); Eosinophils Percent Auto 4.4 % (0.0-7.0); Hematocrit 32.1 % (33.0-51.0); Hemoglobin* 10.3 gm/dL (12.0-16.0); Immature Granulocytes Abs Auto 0.03 K/uL (0.00-0.30); Immature Granulocytes Pct Auto 0.4 %; Lymphocytes Absolute Auto 1.64 K/uL (0.90-2.90); Mean Corpuscular HGB Conc 32 gm/dL (32-36); Mean Corpuscular Hemoglobin 30 pg (26-34); Mean Corpuscular Volume 95 fL (80-100); Monocytes Percent Auto 9.6 % (0.0-11.0); Neutrophils Absolute Auto 4.71 K/uL (1.7-7.0); Neutrophils Percent Auto 63.1 % (42.0-72.0); Platelet Count* 235 K/uL (140-440); RDW Coefficient of Variation % 13.7 % (11.5-15.5); Red Blood Count 3.39 m/uL (4.00-5.20); White Blood Count* 7.47 K/uL (4.50-11.00)
[2023-06-03 07:12] LABS: Slide Review Reflex No
[2023-06-03 07:23] LABS: Chloride* 111 mmol/L (96-114); Potassium* 3.9 mmol/L (3.6-5.1); Sodium* 139 mmol/L (135-149)
[2023-06-03 07:26] LABS: Anion Gap 4 mEq/L (7-15); Blood Urea Nitrogen* 10 mg/dL (7-30); Carbon Dioxide* 24 mmol/L (20-32); Creatinine* 0.6 mg/dL (0.5-1.5); Est. Creatinine Clearance* 118.61; Estimated Glomerular Filt Rate 108 ml/min; Glucose* 96 mg/dL (60-115)
[2023-06-03 08:00] VITALS: BP 149/73; PULSE 76; RESP 16; TEMP 36.4; O2SAT 97
[2023-06-03] MEDS: OXYCODONE 5 MG TABLET PO (08:23)
[2023-06-03] MEDS: LACTOBACILLUS ACIDOPHILUS 1 TABLET 2 TAB PO ×3 (08:23→18:56)
[2023-06-03] MEDS: HYDROmorphone 0.5 mg/0.5 ml inj IVP (09:00)
--- NOTE | 2023-06-03 10:41 | W.PM.INFDCN ---
Consultation Information Consultation Information Consultation Statement: This patient recommendation is based on a telemedicine consult request which was completed asynchronously through chart review and information provided by the primary physician. The patient was not seen or examined today. The evaluation is consultative in nature and all patient care and treatment decisions can either be accepted or rejected by the patient's primary hospital-based treating physician using their own independent medical judgment for their patient. [employer] contact information: Please call ID [facility] [phone] [facility] Social History What is your current living situation?: I presently have a place to live Problems where you live: no known problems Problems where you live details: N/A In the past 12 months, utilities in danger of being shut off: no In past 12 months, lack of transportation kept you from medical appts, meetings, work, or getting things needed for daily living: no In the past 12 mos, have been you worried that your food would run out before you had money to buy more?: never true In the past 12 mos, the food you bought just didn't last and you didn't have money to buy more?: never true Highest level of school completed/degree received: GED or equivalent Smoking Status: Current every day smoker What tobacco products do you use: cigarettes Smoking packs per day: 1 Smoking cigarettes per day: 20.0 Years smoked: 30 Smoking pack-years: 30.00 Second hand tobacco smoke exposure: No How often do you have a drink containing alcohol: monthly or less Alcohol type: other How many standard drinks containing alcohol do you have on a typical day: 1 or 2 How often do you have six or more drinks on one occasion: Never AUDIT-C Alcohol total score: 1 Non-prescribed substance use: denies use Caffeine: Yes How often does anyone, including family, friends and others, physically hurt you: never How often does anyone, including family, friends and others, insult or talk down to you: never How often does anyone, including family, friends and others, threaten you with harm: never How often does anyone, including family, friends and others, scream or curse at you: rarely service: No Home Medications and Allergies Home Medications and Allergies Inpatient Medications: Active Medications Generic Name Dose Route Start Last Admin Trade Name Freq PRN Reason Stop Dose Admin Acetaminophen 650 mg 06/01/23 01:04 06/03/23 08:23 Acetaminophen 325 Mg Tablet PO 650 mg Q4H PRN Administration Pain Daptomycin 0 mg 06/04/23 09:00 Daptomycin 50 Mg/Ml Inj IVP DAILY [facility] Diphenhydramine HCl 25 - 50 mg 06/01/23 01:04 06/02/23 22:05 Diphenhydramine 50 Mg/Ml Inj IVP 50 mg Q6H PRN Administration Itching Hydromorphone HCl 0.1 - 0.5 mg 06/01/23 01:04 06/03/23 09:00 Hydromorphone 0.5 Mg/0.5 Ml Inj IVP 0.5 mg Q2H PRN Administration Pain Vancomycin HCl 2,000 mg/ 520 mls @ 260 mls/hr 06/01/23 09:00 06/03/23 09:11 Sodium Chloride IVPB 260 mls/hr Q12H JYOTI Administration Protocol Sodium Chloride 1,000 mls @ 125 mls/hr 06/02/23 00:04 06/03/23 00:42 0.9 % Sodium Chloride 1000 Ml IV Not Given .Q8H JYOTI Imipenem/Cilastatin Sodium 1, 250 mls @ 250 mls/hr 06/01/23 12:00 06/03/23 05:43 000 mg/ Sodium Chloride IVPB Infused Q8H JYOTI Infusion IV Miscellaneous Supplies 1 each 06/02/23 09:00 06/03/23 08:39 Pharmacist Consult Not Given DAILY [facility] Protocol Ibuprofen 600 mg 06/01/23 01:04 06/03/23 04:26 Ibuprofen 600 Mg Tablet PO 600 mg Q8H PRN Administration Pain Ketorolac Tromethamine 15 mg 06/01/23 01:04 06/01/23 13:13 Ketorolac 15 Mg/Ml Inj IVP 06/06/23 01:03 15 mg Q6H PRN Administration Pain Lactobacillus Acidophilus 2 tab 06/01/23 18:00 06/03/23 08:23 Lactobacillus Acidophilus 1 Tablet PO 2 tab TIDWM JYOTI Administration Lorazepam 0.5 mg 06/02/23 10:46 Lorazepam 0.5 Mg Tablet PO ONCE PRN anxiety Ondansetron HCl 4 - 8 mg 06/01/23 01:04 Ondansetron 2 Mg/Ml Inj IVP Q8H PRN Nausea And Vomiting Oxycodone HCl 5 - 10 mg 06/01/23 01:04 06/03/23 08:23 Oxycodone 5 Mg Tablet PO 10 mg Q4H PRN Administration Pain Discontinued Medications Generic Name Dose Route Start Last Admin Trade Name Sebas PRN Reason Stop Dose Admin Acetaminophen 325 - 650 mg 05/31/23 22:22 06/02/23 10:34 Acetaminophen 325 Mg Tablet PO 05/31/23 22:23 Not Given ONCE ONE Clindamycin Phosphate 900 mg 05/31/23 21:14 05/31/23 22:44 Clindamycin 900 Mg/50 Ml-D5w IVPB 05/31/23 21:15 900 mg ONCE ONE Administration Clindamycin Phosphate 900 mg 06/01/23 06:00 06/03/23 05:46 Clindamycin 900 Mg/50 Ml-D5w IVPB 900 mg Q8H JYOTI Administration Dexamethasone Confirm 05/31/23 22:56 Dexamethasone 4 Mg/Ml Vial Administered 05/31/23 22:57 Dose 4 mg .ROUTE .STK-MED ONE Ephedrine Sulfate 5 - 10 mg 05/31/23 22:22 Ephedrine Sulfate 5 Mg/Ml Inj IVP Q5M PRN Fentanyl Confirm 05/31/23 21:56 Fentanyl 100 Mcg/2 Ml Inj Administered 05/31/23 21:57 Dose 100 mcg .ROUTE .STK-MED ONE Fentanyl 50 mcg 05/31/23 22:22 Fentanyl 100 Mcg/2 Ml Inj IVP Q5M PRN Hydralazine HCl 10 mg 05/31/23 22:22 Hydralazine Hcl 20 Mg/Ml Inj IVP ONCE PRN Hypertension Hydromorphone HCl 0.5 mg 05/31/23 22:22 Hydromorphone 0.5 Mg/0.5 Ml Inj IVP Q10M PRN Hydromorphone HCl Confirm 05/31/23 22:50 Hydromorphone 0.5 Mg/0.5 Ml Inj Administered 05/31/23 22:51 Dose 0.5 mg .ROUTE .STK-MED ONE Hydroxyzine Pamoate 25 mg 05/31/23 22:22 Hydroxyzine Pamoate 25 Mg Capsule PO ONCE PRN Sodium Chloride 1,000 mls @ 1,000 mls/hr 05/31/23 19:00 06/02/23 10:35 0.9 % Sodium Chloride 1000 Ml IV 05/31/23 19:59 Infused .Q1H JYOTI Infusion Vancomycin HCl 2,000 mg/ 520 mls @ 260 mls/hr 05/31/23 18:59 06/02/23 10:35 Sodium Chloride IVPB 05/31/23 19:00 Infused ONCE ONE Infusion Protocol Ceftriaxone Sodium 1 gm/ 100 mls @ 200 mls/hr 05/31/23 19:00 05/31/23 20:49 Sodium Chloride IVPB Infused Q24H JYOTI Infusion Imipenem/Cilastatin Sodium 1, 250 mls @ 250 mls/hr 05/31/23 21:12 06/02/23 10:34 000 mg/ Sodium Chloride IVPB 05/31/23 21:13 Not Given ONCE ONE Sodium Chloride 1,000 mls @ 125 mls/hr 06/01/23 01:04 06/02/23 10:36 0.9 % Sodium Chloride 1000 Ml IV Not Given .Q8H JYOTI Labetalol HCl 5 - 10 mg 05/31/23 22:22 Labetalol Hcl 5 Mg/Ml Inj IVP ONCE PRN Hypertension Lidocaine HCl Confirm 05/31/23 22:56 Lidocaine 2% (Pf) 5 Ml Vial Administered 05/31/23 22:57 Dose 5 ml .ROUTE .STK-MED ONE Lidocaine HCl 50 ml 06/02/23 09:50 06/02/23 11:27 Lidocaine Hcl 4 % Top Soln 50 Ml Bottle TOPICAL 06/02/23 09:51 50 ml ONCE ONE Administration Lorazepam 0.5 mg 06/02/23 10:55 06/02/23 11:23 Lorazepam 2 Mg/Ml Inj IVP 06/02/23 10:56 0.5 mg ONCE ONE Administration Meperidine HCl 12.5 mg 05/31/23 22:22 06/02/23 10:35 Meperidine 25 Mg/Ml Inj IVP 05/31/23 22:23 Not Given ONCE ONE Metoclopramide HCl 10 mg 05/31/23 22:22 06/02/23 10:35 Metoclopramide Hcl 5 Mg/Ml Inj IVP 05/31/23 22:23 Not Given ONCE ONE Midazolam HCl Confirm 05/31/23 21:56 Midazolam Hcl 1 Mg/Ml Inj Administered 05/31/23 21:57 Dose 2 mg .ROUTE .STK-MED ONE Ondansetron HCl Confirm 05/31/23 22:56 Ondansetron 2 Mg/Ml Inj Administered 05/31/23 22:57 Dose 4 mg .ROUTE .STK-MED ONE Phenylephrine HCl 100 mcg 05/31/23 22:22 Phenylephrine 100 Mcg/Ml Syringe IVP Q5M PRN Phenylephrine HCl Confirm 05/31/23 23:07 Phenylephrine 100 Mcg/Ml Syringe Administered 05/31/23 23:08 Dose 1,000 mcg IVP .STK-MED ONE Propofol Confirm 05/31/23 22:56 Propofol 10 Mg/Ml Inj Administered 05/31/23 22:57 Dose 200 mg IVP .STK-MED ONE Rocuronium Bagley Confirm 05/31/23 22:56 Rocuronium Bagley 10 Mg/Ml Inj Administered 05/31/23 22:57 Dose 50 mg IV .STK-MED ONE Sevoflurane Confirm 05/31/23 22:56 Sevoflurane Soln Administered 05/31/23 22:57 Dose 1 each IH .STK-MED ONE Succinylcholine Chloride Confirm 05/31/23 22:56 Succinylcholine 20 Mg/Ml Inj Administered 05/31/23 22:57 Dose 200 mg IVP .STK-MED ONE Sugammadex Sodium Confirm 05/31/23 23:11 Sugammadex 200 Mg/2ml Inj Administered 05/31/23 23:12 Dose 200 mg IVP .STK-MED ONE Sugammadex Sodium Confirm 05/31/23 23:14 Sugammadex 200 Mg/2ml Inj Administered 05/31/23 23:15 Dose 200 mg IVP .STK-MED ONE Allergies Allergy/AdvReac Type Severity Reaction Status Date / Time amoxicillin Allergy Hives Verified 05/31/23 14:13 Objective - Infectious Disease Objective Vital Signs: Vital Signs - 24 hr 06/02/23 11:15 06/02/23 15:00 06/02/23 15:00 Temperature 98.3 F 97.7 F Pulse Rate [Right Pulse Oximeter] 72 91 91 Respiratory Rate 12 14 14 Blood Pressure [Left Arm] Blood Pressure [Left Radial Artery] 131/61 138/77 Pulse Oximetry 95 94 Oxygen Delivery Method Room Air Room Air Oxygen Flow Rate 2 06/02/23 19:00 06/02/23 23:00 06/02/23 23:00 Temperature 97.1 F L 97.1 F L Pulse Rate [Right Pulse Oximeter] 82 73 79 Respiratory Rate 16 16 16 Blood Pressure [Left Arm] 135/86 128/60 Blood Pressure [Left Radial Artery] Pulse Oximetry 96 93 Oxygen Delivery Method Room Air Room Air Oxygen Flow Rate 06/03/23 03:00 06/03/23 08:00 06/03/23 08:00 Temperature 97.9 F 97.5 F L Pulse Rate [Right Pulse Oximeter] 83 76 76 Respiratory Rate 16 16 16 Blood Pressure [Left Arm] 128/66 149/73 H Blood Pressure [Left Radial Artery] Pulse Oximetry 95 97 Oxygen Delivery Method Room Air Room Air Oxygen Flow Rate Narrative: Patient was not seen or examined. Results - Infectious Disease Results Labs: 06/01/23 00:05 Thigh Left Gram Stain - Final 06/01/23 00:05 Thigh Left Aerobic Culture - Preliminary Gram positive cocci 06/01/23 00:05 Thigh Left Anaerobic Culture - Preliminary Culture in Progress 06/01/23 05:45 Blood Blood Culture - Preliminary NO GROWTH AFTER 48 HOURS 06/01/23 05:45 Blood Blood Culture - Preliminary NO GROWTH AFTER 48 HOURS 05/31/23 19:50 Blood Blood Culture - Preliminary NO GROWTH AFTER 48 HOURS 05/31/23 13:35 Blood Blood Culture - Preliminary NO GROWTH AFTER 48 HOURS Laboratory Tests 06/03/23 06/02/23 06/01/23 Range/Units 06:10 06:28 05:45 WBC 7.47 9.44 17.54 H (4.50-11.00) K/uL RBC 3.39 L 3.42 L 3.68 L (4.00-5.20) m/uL Hgb 10.3 L 10.6 L 11.3 L (12.0-16.0) gm/dL Hct 32.1 L 32.5 L 34.6 (33.0-51.0) % MCV 95 95 94 (80-100) fL MCH 30 31 31 (26-34) pg MCHC 32 33 33 (32-36) gm/dL RDW Coeff of Tyra 13.7 13.6 13.3 (11.5-15.5) % Plt Count 235 216 200 (140-440) K/uL Neut % (Auto) 63.1 69.8 90.5 H (42.0-72.0) % Lymph % (Auto) 22.0 17.9 L 4.2 L (20-44) % Whitman % (Auto) 9.6 8.3 4.6 (0.0-11.0) % Eos % (Auto) 4.4 2.5 0.1 (0.0-7.0) % Baso % (Auto) 0.5 0.5 0.2 (0.0-3.0) % Neut # (Auto) 4.71 6.59 15.90 H (1.7-7.0) K/uL Lymph # (Auto) 1.64 1.70 0.70 L (0.90-2.90) K/uL Whitman # (Auto) 0.70 0.80 0.80 (0.00-0.90) K/UL Eos # (Auto) 0.33 0.24 0.00 (0.00-0.50) K/uL Baso # (Auto) 0.04 0.05 0.00 (0.00-0.30) K/uL Abs Immat Gran (auto) 0.03 0.09 0.10 (0.00-0.30) K/uL Imm/Tot Granulo (auto) 0.4 1.0 0.4 % Sodium 139 139 137 (135-149) mmol/L Potassium 3.9 3.7 4.0 (3.6-5.1) mmol/L Chloride 111 110 110 (96-114) mmol/L Carbon Dioxide 24 25 22 (20-32) mmol/L Anion Gap 4 L 4 L 5 L (7-15) mEq/L BUN 10 9 9 (7-30) mg/dL Creatinine 0.6 0.6 0.5 (0.5-1.5) mg/dL Estimated Creat Clear 118.61 118.61 142.33 Estimated GFR 108 108 113 ml/min Glucose 96 100 143 H (60-115) mg/dL Lactate (0.5-1.9) mmol/L Calcium 8.0 L 8.0 L 8.0 L (8.4-10.6) mg/dL 05/31/23 05/31/23 Range/Units 18:59 13:35 WBC 17.22 H (4.50-11.00) K/uL RBC 4.12 (4.00-5.20) m/uL Hgb 12.7 (12.0-16.0) gm/dL Hct 38.0 (33.0-51.0) % MCV 92 (80-100) fL MCH 31 (26-34) pg MCHC 33 (32-36) gm/dL RDW Coeff of Tyra 13.3 (11.5-15.5) % Plt Count 231 (140-440) K/uL Neut % (Auto) 81.5 H (42.0-72.0) % Lymph % (Auto) 9.3 L (20-44) % Whitman % (Auto) 7.4 (0.0-11.0) % Eos % (Auto) 1.3 (0.0-7.0) % Baso % (Auto) 0.3 (0.0-3.0) % Neut # (Auto) 14.00 H (1.7-7.0) K/uL Lymph # (Auto) 1.60 (0.90-2.90) K/uL Whitman # (Auto) 1.30 H (0.00-0.90) K/UL Eos # (Auto) 0.20 (0.00-0.50) K/uL Baso # (Auto) 0.10 (0.00-0.30) K/uL Abs Immat Gran (auto) 0.00 (0.00-0.30) K/uL Imm/Tot Granulo (auto) 0.2 % Sodium 134 L (135-149) mmol/L Potassium 3.5 L (3.6-5.1) mmol/L Chloride 104 (96-114) mmol/L Carbon Dioxide 23 (20-32) mmol/L Anion Gap 7 (7-15) mEq/L BUN 10 (7-30) mg/dL Creatinine 0.5 (0.5-1.5) mg/dL Estimated Creat Clear 142.33 Estimated GFR 113 ml/min Glucose 112 (60-115) mg/dL Lactate 0.9 (0.5-1.9) mmol/L Calcium 8.5 (8.4-10.6) mg/dL Impression & Recommendations Recommendations Impression & Recommendations: .
--- NOTE | 2023-06-03 10:48 | W.PM.INFD_ITS ---
Consultation Information Consultation Information Date of Consult: 06/03/23 Reason for Consult: ABX Consultation Statement: This patient recommendation is based on a telemedicine consult request which was completed asynchronously through chart review and information provided by the primary physician. The patient was not seen or examined today. The evaluation is consultative in nature and all patient care and treatment decisions can either be accepted or rejected by the patient's primary hospital-based treating physician using their own independent medical judgment for their patient. [employer] contact information: Please call [facility] call center [phone] HPI - Infectious Disease History of Present Illness History of Present Illness: 52 F penicillin allergy (rash/hives) had noted last Tuesday a small bump in her left upper thigh f/b small pimple (? Ingrown hair) later developed fever/chills w/ expanding redness associated with pain prompting telemedicine visit on Tuesday and was prescribed p.o. clindamycin and despite she was not prompting ER evaluation. Was noted to have significant erythema/induration above the knee to the groin associated with 6 cm induration/firmness with a pinpoint opening/purulent/foul-smelling drainage noted leukocytosis 17 K, sodium 134, lactate 0.9, CT left leg (with contrast) suggesting left upper medial thigh possibility of necrotizing tissue. No deeper tissue inflammation/abscess/osteomyelitis. Taken urgently to the OR (05/31): S/p excisional debridement/washout --noted moderate amount of sales merchandising specialist fluid from the underlying subcutaneous tissue. Further the wound was extended no evidence of fascial or muscle involvement. Blunt dissection to define the underlying abscess cavity was thoroughly irrigated. The resulting wound measured 9 x 3 x 4 cm deep. Associated with 3 cm of undermining inferior and 4 cm of undermining staining superior. Clinically has improved and has been able to walk around her room and cellulitis has been receding. General surgery opines no further need of OR debridement (post wound examination) PFSH PFSH Social History What is your current living situation?: I presently have a place to live Problems where you live: no known problems Problems where you live details: N/A In the past 12 months, utilities in danger of being shut off: no In past 12 months, lack of transportation kept you from medical appts, meetings, work, or getting things needed for daily living: no In the past 12 mos, have been you worried that your food would run out before you had money to buy more?: never true In the past 12 mos, the food you bought just didn't last and you didn't have money to buy more?: never true Highest level of school completed/degree received: GED or equivalent Smoking Status: Current every day smoker What tobacco products do you use: cigarettes Smoking packs per day: 1 Smoking cigarettes per day: 20.0 Years smoked: 30 Smoking pack-years: 30.00 Second hand tobacco smoke exposure: No How often do you have a drink containing alcohol: monthly or less Alcohol type: other Alcohol type details: ... How many standard drinks containing alcohol do you have on a typical day: 1 or 2 How often do you have six or more drinks on one occasion: Never AUDIT-C Alcohol total score: 1 Non-prescribed substance use: denies use Caffeine: Yes How often does anyone, including family, friends and others, physically hurt you : never How often does anyone, including family, friends and others, insult or talk down to you: never How often does anyone, including family, friends and others, threaten you with harm: never How often does anyone, including family, friends and others, scream or curse at you: rarely service: No Home Medications and Allergies Home Medications and Allergies Inpatient Medications: Active Medications Generic Name Dose Route Start Last Admin Trade Name Sebas PRN Reason Stop Dose Admin Acetaminophen 650 mg 06/01/23 01:04 06/03/23 08:23 Acetaminophen 325 Mg Tablet PO 650 mg Q4H PRN Administration Pain Daptomycin 0 mg 06/04/23 09:00 Daptomycin 50 Mg/Ml Inj IVP DAILY JYOTI Diphenhydramine HCl 25 - 50 mg 06/01/23 01:04 06/02/23 22:05 Diphenhydramine 50 Mg/Ml Inj IVP 50 mg Q6H PRN Administration Itching Hydromorphone HCl 0.1 - 0.5 mg 06/01/23 01:04 06/03/23 09:00 Hydromorphone 0.5 Mg/0.5 Ml Inj IVP 0.5 mg Q2H PRN Administration Pain Vancomycin HCl 2,000 mg/ 520 mls @ 260 mls/hr 06/01/23 09:00 06/03/23 09:11 Sodium Chloride IVPB 260 mls/hr Q12H JYOTI Administration Protocol Sodium Chloride 1,000 mls @ 125 mls/hr 06/02/23 00:04 06/03/23 00:42 0.9 % Sodium Chloride 1000 Ml IV Not Given .Q8H JYOTI Imipenem/Cilastatin Sodium 1, 250 mls @ 250 mls/hr 06/01/23 12:00 06/03/23 05:43 000 mg/ Sodium Chloride IVPB Infused Q8H [facility] Infusion IV Miscellaneous Supplies 1 each 06/02/23 09:00 06/03/23 08:39 Pharmacist Consult Not Given DAILY [facility] Protocol Ibuprofen 600 mg 06/01/23 01:04 06/03/23 04:26 Ibuprofen 600 Mg Tablet PO 600 mg Q8H PRN Administration Pain Ketorolac Tromethamine 15 mg 06/01/23 01:04 06/01/23 13:13 Ketorolac 15 Mg/Ml Inj IVP 06/06/23 01:03 15 mg Q6H PRN Administration Pain Lactobacillus Acidophilus 2 tab 06/01/23 18:00 06/03/23 08:23 Lactobacillus Acidophilus 1 Tablet PO 2 tab TIDWM JYOTI Administration Lorazepam 0.5 mg 06/02/23 10:46 Lorazepam 0.5 Mg Tablet PO ONCE PRN anxiety Ondansetron HCl 4 - 8 mg 06/01/23 01:04 Ondansetron 2 Mg/Ml Inj IVP Q8H PRN Nausea And Vomiting Oxycodone HCl 5 - 10 mg 06/01/23 01:04 06/03/23 08:23 Oxycodone 5 Mg Tablet PO 10 mg Q4H PRN Administration Pain Discontinued Medications Generic Name Dose Route Start Last Admin Trade Name Freq PRN Reason Stop Dose Admin Acetaminophen 325 - 650 mg 05/31/23 22:22 06/02/23 10:34 Acetaminophen 325 Mg Tablet PO 05/31/23 22:23 Not Given ONCE ONE Clindamycin Phosphate 900 mg 05/31/23 21:14 05/31/23 22:44 Clindamycin 900 Mg/50 Ml-D5w IVPB 05/31/23 21:15 900 mg ONCE ONE Administration Clindamycin Phosphate 900 mg 06/01/23 06:00 06/03/23 05:46 Clindamycin 900 Mg/50 Ml-D5w IVPB 900 mg Q8H JYOTI Administration Dexamethasone Confirm 05/31/23 22:56 Dexamethasone 4 Mg/Ml Vial Administered 05/31/23 22:57 Dose 4 mg .ROUTE .STK-MED ONE Ephedrine Sulfate 5 - 10 mg 05/31/23 22:22 Ephedrine Sulfate 5 Mg/Ml Inj IVP Q5M PRN Fentanyl Confirm 05/31/23 21:56 Fentanyl 100 Mcg/2 Ml Inj Administered 05/31/23 21:57 Dose 100 mcg .ROUTE .STK-MED ONE Fentanyl 50 mcg 05/31/23 22:22 Fentanyl 100 Mcg/2 Ml Inj IVP Q5M PRN Hydralazine HCl 10 mg 05/31/23 22:22 Hydralazine Hcl 20 Mg/Ml Inj IVP ONCE PRN Hypertension Hydromorphone HCl 0.5 mg 05/31/23 22:22 Hydromorphone 0.5 Mg/0.5 Ml Inj IVP Q10M PRN Hydromorphone HCl Confirm 05/31/23 22:50 Hydromorphone 0.5 Mg/0.5 Ml Inj Administered 05/31/23 22:51 Dose 0.5 mg .ROUTE .STK-MED ONE Hydroxyzine Pamoate 25 mg 05/31/23 22:22 Hydroxyzine Pamoate 25 Mg Capsule PO ONCE PRN Sodium Chloride 1,000 mls @ 1,000 mls/hr 05/31/23 19:00 06/02/23 10:35 0.9 % Sodium Chloride 1000 Ml IV 05/31/23 19:59 Infused .Q1H JYOTI Infusion Vancomycin HCl 2,000 mg/ 520 mls @ 260 mls/hr 05/31/23 18:59 06/02/23 10:35 Sodium Chloride IVPB 05/31/23 19:00 Infused ONCE ONE Infusion Protocol Ceftriaxone Sodium 1 gm/ 100 mls @ 200 mls/hr 05/31/23 19:00 05/31/23 20:49 Sodium Chloride IVPB Infused Q24H JYOTI Infusion Imipenem/Cilastatin Sodium 1, 250 mls @ 250 mls/hr 05/31/23 21:12 06/02/23 10:34 000 mg/ Sodium Chloride IVPB 05/31/23 21:13 Not Given ONCE ONE Sodium Chloride 1,000 mls @ 125 mls/hr 06/01/23 01:04 06/02/23 10:36 0.9 % Sodium Chloride 1000 Ml IV Not Given .Q8H JYOTI Labetalol HCl 5 - 10 mg 05/31/23 22:22 Labetalol Hcl 5 Mg/Ml Inj IVP ONCE PRN Hypertension Lidocaine HCl Confirm 05/31/23 22:56 Lidocaine 2% (Pf) 5 Ml Vial Administered 05/31/23 22:57 Dose 5 ml .ROUTE .STK-MED ONE Lidocaine HCl 50 ml 06/02/23 09:50 06/02/23 11:27 Lidocaine Hcl 4 % Top Soln 50 Ml Bottle TOPICAL 06/02/23 09:51 50 ml ONCE ONE Administration Lorazepam 0.5 mg 06/02/23 10:55 06/02/23 11:23 Lorazepam 2 Mg/Ml Inj IVP 06/02/23 10:56 0.5 mg ONCE ONE Administration Meperidine HCl 12.5 mg 05/31/23 22:22 06/02/23 10:35 Meperidine 25 Mg/Ml Inj IVP 05/31/23 22:23 Not Given ONCE ONE Metoclopramide HCl 10 mg 05/31/23 22:22 06/02/23 10:35 Metoclopramide Hcl 5 Mg/Ml Inj IVP 05/31/23 22:23 Not Given ONCE ONE Midazolam HCl Confirm 05/31/23 21:56 Midazolam Hcl 1 Mg/Ml Inj Administered 05/31/23 21:57 Dose 2 mg .ROUTE .STK-MED ONE Ondansetron HCl Confirm 05/31/23 22:56 Ondansetron 2 Mg/Ml Inj Administered 05/31/23 22:57 Dose 4 mg .ROUTE .STK-MED ONE Phenylephrine HCl 100 mcg 05/31/23 22:22 Phenylephrine 100 Mcg/Ml Syringe IVP Q5M PRN Phenylephrine HCl Confirm 05/31/23 23:07 Phenylephrine 100 Mcg/Ml Syringe Administered 05/31/23 23:08 Dose 1,000 mcg IVP .STK-MED ONE Propofol Confirm 05/31/23 22:56 Propofol 10 Mg/Ml Inj Administered 05/31/23 22:57 Dose 200 mg IVP .STK-MED ONE Rocuronium [place] Confirm 05/31/23 22:56 Rocuronium [place] 10 Mg/Ml Inj Administered 05/31/23 22:57 Dose 50 mg IV .STK-MED ONE Sevoflurane Confirm 05/31/23 22:56 Sevoflurane Soln Administered 05/31/23 22:57 Dose 1 each IH .STK-MED ONE Succinylcholine Chloride Confirm 05/31/23 22:56 Succinylcholine 20 Mg/Ml Inj Administered 05/31/23 22:57 Dose 200 mg IVP .STK-MED ONE Sugammadex Sodium Confirm 05/31/23 23:11 Sugammadex 200 Mg/2ml Inj Administered 05/31/23 23:12 Dose 200 mg IVP .STK-MED ONE Sugammadex Sodium Confirm 05/31/23 23:14 Sugammadex 200 Mg/2ml Inj Administered 05/31/23 23:15 Dose 200 mg IVP .STK-MED ONE Allergies Allergy/AdvReac Type Severity Reaction Status Date / Time amoxicillin Allergy Hives Verified 05/31/23 14:13 Objective - Infectious Disease Objective Vital Signs: Vital Signs - 24 hr 06/02/23 11:15 06/02/23 15:00 06/02/23 15:00 Temperature 98.3 F 97.7 F Pulse Rate [Right Pulse Oximeter] 72 91 91 Respiratory Rate 12 14 14 Blood Pressure [Left Arm] Blood Pressure [Left Radial Artery] 131/61 138/77 Pulse Oximetry 95 94 Oxygen Delivery Method Room Air Room Air Oxygen Flow Rate 2 06/02/23 19:00 06/02/23 23:00 06/02/23 23:00 Temperature 97.1 F L 97.1 F L Pulse Rate [Right Pulse Oximeter] 82 73 79 Respiratory Rate 16 16 16 Blood Pressure [Left Arm] 135/86 128/60 Blood Pressure [Left Radial Artery] Pulse Oximetry 96 93 Oxygen Delivery Method Room Air Room Air Oxygen Flow Rate 06/03/23 03:00 06/03/23 08:00 06/03/23 08:00 Temperature 97.9 F 97.5 F L Pulse Rate [Right Pulse Oximeter] 83 76 76 Respiratory Rate 16 16 16 Blood Pressure [Left Arm] 128/66 149/73 H Blood Pressure [Left Radial Artery] Pulse Oximetry 95 97 Oxygen Delivery Method Room Air Room Air Oxygen Flow Rate Narrative: Patient was not seen or examined. Results - Infectious Disease Results Labs: 06/01/23 00:05 Thigh Left Gram Stain - Final 06/01/23 00:05 Thigh Left Aerobic Culture - Preliminary Gram positive cocci 06/01/23 00:05 Thigh Left Anaerobic Culture - Preliminary Culture in Progress 06/01/23 05:45 Blood Blood Culture - Preliminary NO GROWTH AFTER 48 HOURS 06/01/23 05:45 Blood Blood Culture - Preliminary NO GROWTH AFTER 48 HOURS 05/31/23 19:50 Blood Blood Culture - Preliminary NO GROWTH AFTER 48 HOURS 05/31/23 13:35 Blood Blood Culture - Preliminary NO GROWTH AFTER 48 HOURS Laboratory Tests 06/03/23 06/02/23 06/01/23 Range/Units 06:10 06:28 05:45 WBC 7.47 9.44 17.54 H (4.50-11.00) K/uL RBC 3.39 L 3.42 L 3.68 L (4.00-5.20) m/uL Hgb 10.3 L 10.6 L 11.3 L (12.0-16.0) gm/dL Hct 32.1 L 32.5 L 34.6 (33.0-51.0) % MCV 95 95 94 (80-100) fL MCH 30 31 31 (26-34) pg MCHC 32 33 33 (32-36) gm/dL RDW Coeff of Tyra 13.7 13.6 13.3 (11.5-15.5) % Plt Count 235 216 200 (140-440) K/uL Neut % (Auto) 63.1 69.8 90.5 H (42.0-72.0) % Lymph % (Auto) 22.0 17.9 L 4.2 L (20-44) % Cassia % (Auto) 9.6 8.3 4.6 (0.0-11.0) % Eos % (Auto) 4.4 2.5 0.1 (0.0-7.0) % Baso % (Auto) 0.5 0.5 0.2 (0.0-3.0) % Neut # (Auto) 4.71 6.59 15.90 H (1.7-7.0) K/uL Lymph # (Auto) 1.64 1.70 0.70 L (0.90-2.90) K/uL Cassia # (Auto) 0.70 0.80 0.80 (0.00-0.90) K/UL Eos # (Auto) 0.33 0.24 0.00 (0.00-0.50) K/uL Baso # (Auto) 0.04 0.05 0.00 (0.00-0.30) K/uL Abs Immat Gran (auto) 0.03 0.09 0.10 (0.00-0.30) K/uL Imm/Tot Granulo (auto) 0.4 1.0 0.4 % Sodium 139 139 137 (135-149) mmol/L Potassium 3.9 3.7 4.0 (3.6-5.1) mmol/L Chloride 111 110 110 (96-114) mmol/L Carbon Dioxide 24 25 22 (20-32) mmol/L Anion Gap 4 L 4 L 5 L (7-15) mEq/L BUN 10 9 9 (7-30) mg/dL Creatinine 0.6 0.6 0.5 (0.5-1.5) mg/dL Estimated Creat Clear 118.61 118.61 142.33 Estimated GFR 108 108 113 ml/min Glucose 96 100 143 H (60-115) mg/dL Lactate (0.5-1.9) mmol/L Calcium 8.0 L 8.0 L 8.0 L (8.4-10.6) mg/dL 05/31/23 05/31/23 Range/Units 18:59 13:35 WBC 17.22 H (4.50-11.00) K/uL RBC 4.12 (4.00-5.20) m/uL Hgb 12.7 (12.0-16.0) gm/dL Hct 38.0 (33.0-51.0) % MCV 92 (80-100) fL MCH 31 (26-34) pg MCHC 33 (32-36) gm/dL RDW Coeff of Tyra 13.3 (11.5-15.5) % Plt Count 231 (140-440) K/uL Neut % (Auto) 81.5 H (42.0-72.0) % Lymph % (Auto) 9.3 L (20-44) % Cassia % (Auto) 7.4 (0.0-11.0) % Eos % (Auto) 1.3 (0.0-7.0) % Baso % (Auto) 0.3 (0.0-3.0) % Neut # (Auto) 14.00 H (1.7-7.0) K/uL Lymph # (Auto) 1.60 (0.90-2.90) K/uL Cassia # (Auto) 1.30 H (0.00-0.90) K/UL Eos # (Auto) 0.20 (0.00-0.50) K/uL Baso # (Auto) 0.10 (0.00-0.30) K/uL Abs Immat Gran (auto) 0.00 (0.00-0.30) K/uL Imm/Tot Granulo (auto) 0.2 % Sodium 134 L (135-149) mmol/L Potassium 3.5 L (3.6-5.1) mmol/L Chloride 104 (96-114) mmol/L Carbon Dioxide 23 (20-32) mmol/L Anion Gap 7 (7-15) mEq/L BUN 10 (7-30) mg/dL Creatinine 0.5 (0.5-1.5) mg/dL Estimated Creat Clear 142.33 Estimated GFR 113 ml/min Glucose 112 (60-115) mg/dL Lactate 0.9 (0.5-1.9) mmol/L Calcium 8.5 (8.4-10.6) mg/dL Impression & Recommendations Recommendations Impression & Recommendations: 52 F penicillin allergy (rash/hives) had noted last Tuesday a small bump in her left upper thigh f/b small pimple (? Ingrown hair) later developed fever/chills w/ expanding redness associated with pain prompting telemedicine visit on Tuesday and was prescribed p.o. clindamycin and despite she was not prompting ER evaluation. Was noted to have significant erythema/induration above the knee to the groin associated with 6 cm induration/firmness with a pinpoint opening/purulent/foul-smelling drainage noted leukocytosis 17 K, sodium 134, lactate 0.9, CT left leg (with contrast) suggesting left upper medial thigh possibility of necrotizing tissue. No deeper tissue inflammation/abscess/osteomyelitis. Taken urgently to the OR (05/31): S/p excisional debridement/washout --noted moderate amount of sales merchandising specialist fluid from the underlying subcutaneous tissue. Further the wound was extended no evidence of fascial or muscle involvement. Blunt dissection to define the underlying abscess cavity was thoroughly irrigated. The resulting wound measured 9 x 3 x 4 cm deep. Associated with 3 cm of undermining inferior and 4 cm of undermining staining superior. Clinically has improved and has been able to walk around her room and cellulitis has been receding. General surgery opines no further need of OR debridement (post wound examination) #Left upper thigh necrotizing fasciitis s/p I&D cultures growing GPC #Dyslipidemia # #Penicillin allergy listed (has tolerated carbapenems, ceftriaxone in house) Micro 05/31 and 06/01 BCx: NGTD 48 hours 06/01 OR/L thigh: GPC. Small amount (R erythromycin only otherwise pansensitive) Currently sepsis resolved with good source control. Today WBC 7.4K, cr 0.6. No evidence of deeper muscle or fascial involvement in the OR. Pending wound VAC placement Reccs Switch IV vancomycin to IV daptomycin 6 mg/kg body weight (await further GPC's sensitivity results) Obtain CK levels. Hold statin while on IV daptomycin C/w IV imipenem for now, pending cxs If OR cultures are negative for gram-negative growth can potentially discontinue gram-negative coverage Based on the final OR cultures will target antibiotic regimen Patient has tolerated IV ceftriaxone in-house (if cultures are positive for strep can be switched to monotherapy with IV ceftriaxone) Tentative plan at least x ~2 weeks (05/31- 06/13) of IV antibiotics, and if needed can be Extended by x 1 more week of p.o. antibiotics to be determined at outpatient visit. Plan d/w team in detail While on IV antibiotics patient will need weekly labs including CBCD, CMP & if continues to be on daptomycin will need CK ID will not be able to follow the patient over the weekend. If any questions please reach out to [facility] [phone]. Will follow back on Tuesday
--- NOTE | 2023-06-03 10:54 | PM.IMPN1 ---
Progress Note: A&P Assessment and plan (1) Necrotizing soft tissue infection: Problem details: 1. Necrotizing soft tissue infection, left thigh s/p Excision all debridement and washout, left thigh infection; General Anesthesia; EBL 5 cc -pain control; diet; dvt ppx per surgery -continue IV antibiotics: clindamycin+Imipenem+vanco; once cultures available can discuss antibiotic plan with infectious dx. per lab 05/03 cultures still pending -wound cultures growing multiple organisms; not all cultures finalized -organism one Staphylococcus urealyticus -06/03 ID consulted; see upcoming recommendations -likely will be transitioned to Daptomycin; will need to follow up other cultures; keep in hospital today till all cultures finalized. SW consult for evaluation of home care antibiotic service. Discussed with patient. If decides to go with home care will need picc line. She also is considering coming to infusion center pending antibiotic regimen which is to be determined once all cultures finalized. Per ID hold statin while on Daptomycin. Anticipated two weeks of antibiotic therapy (one week of IV antibiotics followed by oral) 2. Hyponatremia; resolved; 3. Hx of HLD; hold statin for now Status: Acute Subjective Date Seen: 06/03/23 Interval history: Case discussed with ID (see upcoming recs) patient doing well normal wbc; no fevers wound vac applied otday Exam Narrative: Exam Narrative: Gen: no acute distress HEENT: NCAT EOMI mmm CV: RRR normal s1 s2 Lungs: CTAB Abd: Soft,nt, nd Neuro: Alert, oriented, CN grossly intact; nonfocal screening?exam Psych: anxious MSK: age appropriate muscle mass Skin; Warm, dry no rash on face 9 cm by 3 cm by 4 cm deep wound left medial thigh; erythema outlined extending below knee Const: Vital Signs, click to edit/add: Vital Signs - 24 hr 06/02/23 11:15 06/02/23 15:00 06/02/23 15:00 Temperature 98.3 F 97.7 F Pulse Rate [Right Pulse Oximeter] 72 91 91 Respiratory Rate 12 14 14 Blood Pressure [Le ft Arm] Blood Pressure [Le ft Radial Artery] 131/61 138/77 Pulse Oximetry 95 94 Oxygen Delivery Me thod Room Air Room Air Oxygen Flow Rate 2 06/02/23 19:00 06/02/23 23:00 06/02/23 23:00 Temperature 97.1 F L 97.1 F L Pulse Rate [Right Pulse Oximeter] 82 73 79 Respiratory Rate 16 16 16 Blood Pressure [Le ft Arm] 135/86 128/60 Blood Pressure [Le ft Radial Artery] Pulse Oximetry 96 93 Oxygen Delivery Me thod Room Air Room Air Oxygen Flow Rate 06/03/23 03:00 06/03/23 08:00 06/03/23 08:00 Temperature 97.9 F 97.5 F L Pulse Rate [Right Pulse Oximeter] 83 76 76 Respiratory Rate 16 16 16 Blood Pressure [Le ft Arm] 128/66 149/73 H Blood Pressure [Le ft Radial Artery] Pulse Oximetry 95 97 Oxygen Delivery Me thod Room Air Room Air Oxygen Flow Rate Labs Labs: Laboratory Results - last 24 hr 06/03/23 06:10 WBC 7.47 RBC 3.39 L Hgb 10.3 L Hct 32.1 L MCV 95 MCH 30 MCHC 32 RDW Coeff of Tyra 13.7 Plt Count 235 Neut % (Auto) 63.1 Lymph % (Auto) 22.0 King % (Auto) 9.6 Eos % (Auto) 4.4 Baso % (Auto) 0.5 Neut # (Auto) 4.71 Lymph # (Auto) 1.64 King # (Auto) 0.70 Eos # (Auto) 0.33 Baso # (Auto) 0.04 Abs Immat Gran (auto) 0.03 Imm/Tot Granulo (auto) 0.4 Sodium 139 Potassium 3.9 Chloride 111 Carbon Dioxide 24 Anion Gap 4 L BUN 10 Creatinine 0.6 Estimated Creat Clear 118.61 Estimated GFR 108 Glucose 96 Calcium 8.0 L
--- NOTE | 2023-06-03 11:24 | PM.GSPN ---
Subjective Subjective Date Seen: 06/03/23 Interval history: Patient is doing well this morning. The dressing changes have become less painful. Wound VAC was placed at the bedside, which she tolerated well. She did need some IV pain medicine for that dressing change and oxycodone before hand. She denies any fevers overnight. She does feel like there is a heaviness to her leg still. Denies any significant pain. Has not had progression of redness. Is otherwise tolerating a regular diet. No other concerns. Her is at the bedside and supportive. Exam Narrative: Exam Narrative: General: Alert and oriented, no acute distress. Nontoxic Extremities: Left upper medial thigh incision, approximately 9 x 4 x 3 cm. Undermining noted superior and inferior. No undrained pockets of fluid. No obvious areas of necrosis or foul odor. Surrounding erythema and induration significantly improved. Cellulitis has receded from the outlined area. When examining bilateral lower extremities they are symmetric, no significant swelling or pain or tenderness of the calves. Const: Vital Signs, click to edit/add: Vital Signs - 24 hr 06/02/23 15:00 06/02/23 15:00 06/02/23 19:00 Temperature 97.7 F 97.1 F L Pulse Rate [Right Pulse Oximeter] 91 91 82 Respiratory Rate 14 14 16 Blood Pressure [Le ft Arm] 135/86 Blood Pressure [Le ft Radial Artery] 138/77 Pulse Oximetry 94 96 Oxygen Delivery Me thod Room Air Room Air 06/02/23 23:00 06/02/23 23:00 06/03/23 03:00 Temperature 97.1 F L 97.9 F Pulse Rate [Right Pulse Oximeter] 73 79 83 Respiratory Rate 16 16 16 Blood Pressure [Le ft Arm] 128/60 128/66 Blood Pressure [Le ft Radial Artery] Pulse Oximetry 93 95 Oxygen Delivery Me thod Room Air Room Air 06/03/23 08:00 06/03/23 08:00 Temperature 97.5 F L Pulse Rate [Right Pulse Oximeter] 76 76 Respiratory Rate 16 16 Blood Pressure [Le ft Arm] 149/73 H Blood Pressure [Le ft Radial Artery] Pulse Oximetry 97 Oxygen Delivery Me thod Room Air Labs/Imaging Labs Labs: No leukocytosis. Progress Note: A&P Assessment and plan (1) Necrotizing soft tissue infection: Problem details: 1. Necrotizing soft tissue infection, left thigh s/p Excision all debridement and washout, left thigh infection; General Anesthesia; EBL 5 cc -pain control; diet; dvt ppx per surgery -continue IV antibiotics: clindamycin+Imipenem+vanco; once cultures available can discuss antibiotic plan with infectious dx. per lab 05/03 cultures still pending -wound cultures growing multiple organisms; not all cultures finalized -organism one Staphylococcus urealyticus -06/03 ID consulted; see upcoming recommendations -likely will be transitioned to Daptomycin; will need to follow up other cultures; keep in hospital today till all cultures finalized. SW consult for evaluation of home care antibiotic service. Discussed with patient. If decides to go with home care will need picc line. She also is considering coming to infusion center pending antibiotic regimen which is to be determined once all cultures finalized. Per ID hold statin while on Daptomycin. Anticipated two weeks of antibiotic therapy (one week of IV antibiotics followed by oral) 2. Hyponatremia; resolved; 3. Hx of HLD; hold statin for now Status: Acute Assessment and Plan: Patient is POD3 Excisional debridement and washout left medial thigh soft tissue necrotizing infection. Wound VAC applied. Patient has been set up for VAC changes at [facility] on Mon/Wed/Fri. Awaiting cultures and ID consult to narrow antibiotics. - regular diet - wound vac to continue at time of discharge - hospitalist is managing antibiotics, continued on broad spectrum and awaiting culture results. - encourage ambulation, SCDs for DVT ppx. Lovenox 40mg once daily.
[2023-06-03 13:34] VITALS: BP 163/84; PULSE 83; RESP 18; TEMP 36.6; O2SAT 97
--- NOTE | 2023-06-03 16:00 | CRLHL7_ITS ---
For Patients: As a result of the Century Cures Act, medical imaging exams and procedure reports are released immediately into your electronic medical record. You may view this report before your referring provider. If you have questions, please contact your health care provider. INDICATION: PICC line placement. TECHNIQUE: Chest 1 view. COMPARISON: None. FINDINGS: Cardiovascular and mediastinum: Heart size and vasculature are normal in caliber and appearance. Right upper extremity PICC tip projects near the cavoatrial junction. Lungs and pleural spaces: Lungs are clear. No sign of infiltrate or mass. No sign of pleural effusion. No pneumothorax. Bones and soft tissues: No significant findings. IMPRESSION: Satisfactory position of right upper extremity PICC with its tip projecting near the cavoatrial junction. Dictated by Avni Villaseñor MD @ 06/03/2023 7:25:00 PM (Electronically Signed)
--- NOTE | 2023-06-03 16:00 | CRLHL7_ITS ---
For Patients: As a result of the Century Cures Act, medical imaging exams and procedure reports are released immediately into your electronic medical record. You may view this report before your referring provider. If you have questions, please contact your health care provider. Indication: PICC placement Technique: Grayscale ultrasound of the right internal jugular vein and right basilic vein. IMPRESSION: Sonographic guidance for right arm PICC line placement. Dictated by Dg Nieto MD @ 06/05/2023 2:24:08 PM (Electronically Signed)
[2023-06-03 16:40] VITALS: BP 163/83; PULSE 86; RESP 18; TEMP 36.3; O2SAT 97
[2023-06-03 18:28] LABS: Creatine Kinase* 33 U/L (41-117)
[2023-06-03] MEDS: KETOROLAC 15 MG/ML inj IVP (21:27)
[2023-06-03] MEDS: diphenhydrAMINE 50 MG/ML inj IVP (21:27)
--- NOTE | 2023-06-03 22:37 | PC.NURSE ---
Shift [id number]- Patient wound vac in place. She states some pain, seems satisfied with pain relief from PRN pain medication given per discussion with patient- see eMAR. PICC placed this evening- verified via x-ray. She is up and walks the halls independently.
[2023-06-03 23:00] VITALS: BP 153/63; PULSE 89; RESP 16; TEMP 36.6; O2SAT 98
[2023-06-04] MEDS: LORazepam 0.5 MG TABLET PO (01:35)
[2023-06-04 04:44] VITALS: BP 164/74; PULSE 90; RESP 20; TEMP 36.9; O2SAT 93
[2023-06-04] MEDS: ACETAMINOPHEN 325 MG TABLET 650 MG PO ×3 (06:45→17:19)
[2023-06-04 07:22] LABS: Chloride* 108 mmol/L (96-114); Potassium* 3.8 mmol/L (3.6-5.1); Sodium* 140 mmol/L (135-149)
[2023-06-04 07:25] LABS: Anion Gap 8 mEq/L (7-15); Carbon Dioxide* 24 mmol/L (20-32); Creatine Kinase* 38 U/L (41-117); Creatinine* 0.5 mg/dL (0.5-1.5); Est. Creatinine Clearance* 142.33; Estimated Glomerular Filt Rate 113 ml/min
[2023-06-04 07:26] LABS: Blood Urea Nitrogen* 5 mg/dL (7-30); Calcium* 8.5 mg/dL (8.4-10.6); Glucose* 101 mg/dL (60-115)
[2023-06-04 07:35] LABS: Basophils Absolute Auto 0.06 K/uL (0.00-0.30); Basophils Percent Auto 0.7 % (0.0-3.0); Eosinophils Absolute Auto 0.34 K/uL (0.00-0.50); Eosinophils Percent Auto 3.9 % (0.0-7.0); Hematocrit 35.8 % (33.0-51.0); Hemoglobin* 11.7 gm/dL (12.0-16.0); Immature Granulocytes Abs Auto 0.12 K/uL (0.00-0.30); Immature Granulocytes Pct Auto 1.4 %; Lymphocytes Absolute Auto 1.77 K/uL (0.90-2.90); Lymphocytes Percent Auto 20.5 % (20-44); Mean Corpuscular HGB Conc 33 gm/dL (32-36); Mean Corpuscular Hemoglobin 31 pg (26-34); Mean Corpuscular Volume 95 fL (80-100); Monocytes Percent Auto 9.6 % (0.0-11.0); Neutrophils Absolute Auto 5.52 K/uL (1.7-7.0); Neutrophils Percent Auto 63.9 % (42.0-72.0); Platelet Count* 296 K/uL (140-440); RDW Coefficient of Variation % 13.6 % (11.5-15.5); Red Blood Count 3.79 m/uL (4.00-5.20); White Blood Count* 8.64 K/uL (4.50-11.00)
[2023-06-04 07:40] LABS: Slide Review Reflex No
[2023-06-04 09:00] VITALS: BP 147/91; PULSE 89; RESP 18; TEMP 36.4; O2SAT 96
[2023-06-04] MEDS: LACTOBACILLUS ACIDOPHILUS 1 TABLET 2 TAB PO ×3 (09:04→18:29)
--- NOTE | 2023-06-04 09:08 | PC.NURSE ---
Patient pleasant, alert and oriented. Ambulated independently in her room. Wound vac dressing intact. PRN Ativan requested at 0130 for anxiety symptoms. PRN Tylenol requested this morning for discomfort rated 4/10.
[2023-06-04] MEDS: DAPTOmycin 50 MG/ML inj 500 MG IVP (10:32)
[2023-06-04 11:00] VITALS: BP 150/90; PULSE 83; RESP 16; TEMP 36.2; O2SAT 97
[2023-06-04 15:30] VITALS: BP 147/79; PULSE 82; RESP 16; TEMP 36.3; O2SAT 96
[2023-06-04] MEDS: SODIUM CHLORIDE 0.9 % (FLUSH) 10 ML SYRINGE IVF ×2 (15:30→18:30)
--- NOTE | 2023-06-04 17:54 | PC.NURSE ---
Pt alert and oriented. Pt pleasant and cooperative. Pt had complaints of pain ranging from 0-4; see EMAR for intervention. Pt independent in room and hallways. Pt up walking in hallways multiple times throughout shift. Pt?s wound vac intact. P?s cellulitis has receded and not extended past drawn lines.?Pt had non pitting edema in left LE.
--- NOTE | 2023-06-04 18:13 | P.IMPN_ITS ---
Progress Note: A&P Assessment and plan (1) Necrotizing soft tissue infection: Problem details: Necrotizing soft tissue infection, left thigh s/p Excision all debridement and washout, left thigh infection; General Anesthesia; EBL 5 cc - has wound VAC. Appreciate General surgery recommendations. Wound VAC will continue at time of discharge. - pain well controlled. -organism one Staphylococcus urealyticus -06/03 ID consulted; see upcoming recommendations -likely will be transitioned to Daptomycin; will need to follow up other cultures; keep in hospital today till all cultures finalized. SW consult for evaluation of home care antibiotic service. Discussed with patient. If decides to go with home care will need picc line. She also is considering coming to infusion center pending antibiotic regimen which is to be determined once all cultures finalized. Per ID hold statin while on Daptomycin. Anticipated two weeks of antibiotic therapy (one week of IV antibiotics followed by oral) - 06/04 initial antibiotics were clindamycin, imipenem, and vancomycin. Yesterday these were switched to imipenem and daptomycin after consultation with Infectious Disease. - wound cultures growing multiple organisms; not all cultures finalized Status: Acute (2) Hyperlipidemia: Problem details: Statin on hold while she is on daptomycin. Status: Chronic (3) Anxiety: Problem details: Likely situational, discussed box breathing and meditate of exercises to calm 1 self. Also discussed self cares. She is agreeable to try hydroxyzine p.r.n. instead of Ativan. Status: Acute Plan VTE prophylaxis: encourage ambulation, SCDs, low-dose Lovenox daily. Time Spent With Patient Total time spent: Today I spent 40 minutes rounding on the patient. Greater than 50% included discussing care with patient and her , discussing care with the team, reviewing data, updating and managing the care plan. Subjective Time Seen by Provider: 13:55 Date Seen: 06/04/23 Interval history: Ellie and her , Guru, are in the room. Ellie had some anxiety last night for which she used Ativan. She had a few questions today about why she is still here and what the plan of care will be. We discussed treatment of cellulitis including talking about the 3 different Staph coccus organisms found and that the anaerobic cultures were still pending. We discussed stations of Infectious Disease and the antibiotics that she was on including the antibiotics as she is currently on, imipenem and daptomycin. Exam Narrative: Exam Narrative: General: No acute distress. Awake, alert, oriented x3. No pallor. No jaundice. Oropharynx: Clear. Mucous membranes moist. Cardiovascular: Regular rate and rhythm. No murmurs, gallops, or rubs. Respiratory: Clear to auscultation bilaterally. No wheezes or crackles. Abdomen: Bowel sounds present. Soft, nondistended, nontender. Extremities: Erythema has mostly subsided and receded from the outline drawn. There is an area of mild induration in the posterior medial thigh near the perineum, but does not include the perineum. This is mildly tender to palpation, but according to the patient better than what it was. Wound VAC is in place. Const: Vital Signs, click to edit/add: Vital Signs - 24 hr 06/03/23 23:00 06/04/23 04:44 06/04/23 09:00 Temperature 97.9 F 98.5 F 97.5 F L Pulse Rate [Right Pulse Oximeter] 89 90 89 Respiratory Rate 16 20 18 Blood Pressure [Le ft Arm] 153/63 H 164/74 H 147/91 H Pulse Oximetry 98 93 96 Oxygen Delivery Me thod Room Air Room Air Room Air 06/04/23 11:00 06/04/23 15:30 Temperature 97.1 F L 97.4 F L Pulse Rate [Right Pulse Oximeter] 83 82 Respiratory Rate 16 16 Blood Pressure [Le ft Arm] 150/90 H 147/79 H Pulse Oximetry 97 96 Oxygen Delivery Me thod Room Air Labs Labs: Laboratory Results - last 24 hr 06/03/23 06/04/23 06:10 06:20 WBC 8.64 RBC 3.79 L Hgb 11.7 L Hct 35.8 MCV 95 MCH 31 MCHC 33 RDW Coeff of Tyra 13.6 Plt Count 296 Neut % (Auto) 63.9 Lymph % (Auto) 20.5 [place] % (Auto) 9.6 Eos % (Auto) 3.9 Baso % (Auto) 0.7 Neut # (Auto) 5.52 Lymph # (Auto) 1.77 [place] # (Auto) 0.80 Eos # (Auto) 0.34 Baso # (Auto) 0.06 Abs Immat Gran (auto) 0.12 Imm/Tot Granulo (auto) 1.4 Sodium 140 Potassium 3.8 Chloride 108 Carbon Dioxide 24 Anion Gap 8 BUN 5 L Creatinine 0.5 Estimated Creat Clear 142.33 Estimated GFR 113 Glucose 101 Calcium 8.5 Total Creatine Kinase 33 L 38 L
[2023-06-04 20:27] VITALS: BP 155/79; PULSE 82; RESP 16; TEMP 36.6; O2SAT 94
[2023-06-04] MEDS: hydrOXYzine pamoate 25 MG CAPSULE PO (21:34)
[2023-06-04] MEDS: diphenhydrAMINE 50 MG/ML inj IVP (21:34)
[2023-06-04] MEDS: KETOROLAC 15 MG/ML inj IVP (21:43)
[2023-06-04 23:41] VITALS: BP 145/98; PULSE 80; RESP 14; TEMP 36.6; O2SAT 94
[2023-06-05] MEDS: ACETAMINOPHEN 325 MG TABLET 650 MG PO ×4 (02:05→17:34)
[2023-06-05 03:00] VITALS: BP 164/63; PULSE 90; RESP 16; TEMP 36.1; O2SAT 97
--- NOTE | 2023-06-05 06:35 | PC.NURSE ---
End of shift [id number]: A&O, pleasant and cooperative. Reporting 0-4/10. See eMAR for interventions. Afebrile. Wound vac intact. LLE edema. Left thigh is red and warm to the touch but appears to be receding from original marking. Up at lauri.
[2023-06-05 07:46] VITALS: BP 155/78; PULSE 73; RESP 16; TEMP 36.3; O2SAT 95
[2023-06-05] MEDS: LACTOBACILLUS ACIDOPHILUS 1 TABLET 2 TAB PO ×3 (07:55→17:34)
[2023-06-05] MEDS: DAPTOmycin 50 MG/ML inj 500 MG IVP (11:23)
[2023-06-05] MEDS: SODIUM CHLORIDE 0.9 % (FLUSH) 10 ML SYRINGE IVF ×2 (11:24→17:34)
[2023-06-05 11:25] VITALS: BP 170/88; PULSE 70; RESP 16; TEMP 36.4; O2SAT 98
--- NOTE | 2023-06-05 14:23 | CRLHL7_ITS ---
For Patients: As a result of the Century Cures Act, medical imaging exams and procedure reports are released immediately into your electronic medical record. You may view this report before your referring provider. If you have questions, please contact your health care provider. INDICATION: Left leg swelling that the medication Motrin and Tylenol but uterine him to present the main Rafat TECHNIQUE: A compression venous ultrasound exam was performed of the left lower extremity using lea-scale imaging, color Doppler and spectral Doppler analysis. FINDINGS: Sonographic imaging of the left lower extremity demonstrates normal compressibility and color Doppler venous blood flow within the common femoral vein, deep femoral vein, and the proximal greater saphenous vein. Within the thigh, the femoral vein is patent and compressible. At a lower level, the popliteal and posterior tibial veins also show normal compressibility and color Doppler venous blood flow. Limited imaging of the contralateral groin demonstrates a normal spectral waveform and color Doppler venous blood flow within the right common femoral vein. IMPRESSION: No evidence of deep vein thrombosis within the left lower extremity. Dictated by Alexsandra Pretty MD @ 06/05/2023 4:02:29 PM (Electronically Signed)
[2023-06-05 15:25] VITALS: BP 133/65; PULSE 81; RESP 16; TEMP 36.8; O2SAT 95
--- NOTE | 2023-06-05 17:55 | PC.NURSE ---
Pt alert and oriented. Pt pleasant and cooperative. Pt had complaints of pain ranging from 0-4; see EMAR for intervention. Pt independent in room and hallways. Pt up walking in hallways multiple times throughout shift. Pt?s wound vac intact; more drainage noted this shift. Pt?s cellulitis has receded and not extended past drawn lines.?Pt's present most of shift.
--- NOTE | 2023-06-05 19:08 | PM.IMPN1 ---
Progress Note: A&P Assessment and plan (1) Necrotizing soft tissue infection: Problem details: Necrotizing soft tissue infection, left thigh s/p Excision all debridement and washout, left thigh infection; General Anesthesia; EBL 5 cc - has wound VAC. Appreciate General surgery recommendations. Wound VAC will continue at time of discharge. - pain well controlled. -organism one Staphylococcus urealyticus -06/03 ID consulted; see upcoming recommendations -likely will be transitioned to Daptomycin; will need to follow up other cultures; keep in hospital today till all cultures finalized. SW consult for evaluation of home care antibiotic service. Discussed with patient. If decides to go with home care will need picc line. She also is considering coming to infusion center pending antibiotic regimen which is to be determined once all cultures finalized. Per ID hold statin while on Daptomycin. Anticipated two weeks of antibiotic therapy (one week of IV antibiotics followed by oral) - 06/04 initial antibiotics were clindamycin, imipenem, and vancomycin. Yesterday these were switched to imipenem and daptomycin after consultation with Infectious Disease. - wound cultures growing multiple organisms; not all cultures finalized; checking with lab daily. Status: Acute (2) Hyperlipidemia: Problem details: Statin on hold while she is on daptomycin. Status: Chronic (3) Anxiety: Problem details: Likely situational, discussed box breathing and meditate of exercises to calm 1 self. Also discussed self cares. These were helpful and she had a restful night. Hydroxyzine also available for anxiety Status: Acute Plan No DVT on left lower extremity ultrasound. Swelling of left ankle likely due to gravity and improvement of edema of left upper thigh. VTE prophylaxis: encourage ambulation, SCDs, low-dose Lovenox daily. Subjective Time Seen by Provider: 14:10 Date Seen: 06/05/23 Interval history: Ellie is doing very well, and understandably anxious to get results and to go home. C/o left ankle swelling, tightness. Has been on SCDs and TEDs, but no lovenox. Exam Narrative: Exam Narrative: General: No acute distress. Awake, alert, oriented. No pallor. No jaundice. Cardiovascular: Regular rate and rhythm. No murmurs, gallops, or rubs. Respiratory: Clear to auscultation bilaterally. No wheezes or crackles. Abdomen: Bowel sounds present. Soft, nondistended, nontender. Extremities: Erythema and induration continue to improve. Wound VAC remains in place. Const: Vital Signs, click to edit/add: Vital Signs - 24 hr 06/04/23 20:27 06/04/23 23:41 06/05/23 03:00 Temperature 97.9 F 97.9 F 96.9 F L Pulse Rate [Right Pulse Oximeter] 82 80 90 Respiratory Rate 16 14 16 Blood Pressure [Le ft Arm] 155/79 H 145/98 H 164/63 H Pulse Oximetry 94 94 97 Oxygen Delivery Me thod Room Air Room Air Room Air 06/05/23 07:46 06/05/23 11:25 06/05/23 15:25 Temperature 97.4 F L 97.6 F 98.3 F Pulse Rate [Right Pulse Oximeter] 73 70 81 Respiratory Rate 16 16 16 Blood Pressure [Le ft Arm] 155/78 H 170/88 H 133/65 Pulse Oximetry 95 98 95 Oxygen Delivery Me thod Room Air Room Air Room Air Labs Labs: Ordering Physician: Keyanna Ferris M.D. Date of Service: 06/05/23 Procedure(s): US venous LE LT Accession Number(s): [id number] cc: Zaynab Carroll M.D.; Keyanna Ferris M.D.~ For Patients: As a result of the Century Cures Act, medical imaging exams and procedure reports are released immediately into your electronic medical record. You may view this report before your referring provider. If you have questions, please contact your health care provider. INDICATION: Left leg swelling that the medication Motrin and Tylenol but uterine him to present the main Rafat TECHNIQUE: A compression venous ultrasound exam was performed of the left lower extremity using lea-scale imaging, color Doppler and spectral Doppler analysis. FINDINGS: Sonographic imaging of the left lower extremity demonstrates normal compressibility and color Doppler venous blood flow within the common femoral vein, deep femoral vein, and the proximal greater saphenous vein. Within the thigh, the femoral vein is patent and compressible. At a lower level, the popliteal and posterior tibial veins also show normal compressibility and color Doppler venous blood flow. Limited imaging of the contralateral groin demonstrates a normal spectral waveform and color Doppler venous blood flow within the right common femoral vein. IMPRESSION: No evidence of deep vein thrombosis within the left lower extremity. Dictated by Alexsandra Pretty MD @ 06/05/2023 4:02:29 PM (Electronically Signed)
[2023-06-05 19:32] VITALS: BP 159/80; PULSE 84; RESP 16; TEMP 36.2; O2SAT 96
[2023-06-05] MEDS: hydrOXYzine pamoate 25 MG CAPSULE PO (21:27)
[2023-06-05] MEDS: ENOXAPARIN 40 MG/0.4 ML INJ SUBCUT (21:27)
[2023-06-05] MEDS: KETOROLAC 15 MG/ML inj IVP (21:27)
[2023-06-05] MEDS: diphenhydrAMINE 50 MG/ML inj IVP (21:27)
[2023-06-05 23:30] VITALS: BP 136/48; PULSE 80; RESP 16; TEMP 36.2; O2SAT 95
[2023-06-06 02:46] VITALS: BP 143/64; PULSE 92; RESP 16; TEMP 36.2; O2SAT 97
[2023-06-06] MEDS: ACETAMINOPHEN 325 MG TABLET 650 MG PO (02:48)
--- NOTE | 2023-06-06 06:24 | PC.NURSE ---
End of shift [id number]: A&O, pleasant and cooperative. Reporting 0-4/10. See eMAR for interventions. Afebrile. Wound vac intact. LLE edema. Left thigh is pink and warm to the touch. Redness is receding from original markings. PICC in place and patent. Ambulated in poe last evening. Up at lauri.?
[2023-06-06 07:50] VITALS: BP 154/90; PULSE 78; RESP 16; TEMP 36.3; O2SAT 97
[2023-06-06] MEDS: LACTOBACILLUS ACIDOPHILUS 1 TABLET 2 TAB PO ×2 (09:00→12:04)
[2023-06-06 09:01] LABS: C.Difficile Negative (Negative); CDIFFEPI 027 PRESUMPTIVE NEGATIVE (Negative)
[2023-06-06] MEDS: SODIUM CHLORIDE 0.9 % (FLUSH) 10 ML SYRINGE IVF ×2 (09:01→10:39)
[2023-06-06 10:37] VITALS: BMI 40.4
[2023-06-06] MEDS: DAPTOmycin 50 MG/ML inj 500 MG IVP (10:39)
[2023-06-06 11:15] VITALS: BP 166/87; PULSE 81; RESP 16; TEMP 36.8; O2SAT 96
--- NOTE | 2023-06-06 12:06 | W.PM.IDPRG_ITS ---
Visit Information Visit Information Date: 06/06/23 Visit Information: Patient was not seen. Subjective Subjective Subjective: This patient recommendation is based on a telemedicine consult request which was completed asynchronously through chart review and information provided by the primary physician. The patient was not seen or examined today. The evaluation is consultative in nature and all patient care and treatment decisions can either be accepted or rejected by the patient's primary hospital-based treating physician using their own independent medical judgment for their patient. Home Medications and Allergies Home Medications and Allergies Inpatient Medications: Active Medications Generic Name Dose Route Start Last Admin Trade Name Freq PRN Reason Stop Dose Admin Acetaminophen 650 mg 06/01/23 01:04 06/06/23 02:48 Acetaminophen 325 Mg Tablet PO 650 mg Q4H PRN Administration Pain Daptomycin 500 mg 06/04/23 10:30 06/06/23 10:39 Daptomycin 50 Mg/Ml Inj IVP 500 mg Q24H JYOTI Administration Diphenhydramine HCl 25 - 50 mg 06/01/23 01:04 06/05/23 21:27 Diphenhydramine 50 Mg/Ml Inj IVP 25 mg Q6H PRN Administration Itching Enoxaparin Sodium 40 mg 06/05/23 21:00 06/05/23 21:27 Enoxaparin 40 Mg/0.4 Ml Inj SUBCUT 40 mg HS JYOTI Administration Hydromorphone HCl 0.1 - 0.5 mg 06/01/23 01:04 06/03/23 09:00 Hydromorphone 0.5 Mg/0.5 Ml Inj IVP 0.5 mg Q2H PRN Administration Pain Hydroxyzine Pamoate 25 mg 06/04/23 18:12 06/05/23 21:27 Hydroxyzine Pamoate 25 Mg Capsule PO 25 mg Q4H PRN Administration Anxiety Imipenem/Cilastatin Sodium 500 100 mls @ 100 mls/hr 06/04/23 13:15 06/06/23 12:04 mg/ Sodium Chloride IVPB 200 mls/hr Q6H JYOTI Administration Ibuprofen 600 mg 06/01/23 01:04 06/03/23 04:26 Ibuprofen 600 Mg Tablet PO 600 mg Q8H PRN Administration Pain Lactobacillus Acidophilus 2 tab 06/01/23 18:00 06/06/23 12:04 Lactobacillus Acidophilus 1 Tablet PO 2 tab TIDWM JYOTI Administration Ondansetron HCl 4 - 8 mg 06/01/23 01:04 Ondansetron 2 Mg/Ml Inj IVP Q8H PRN Nausea And Vomiting Oxycodone HCl 5 - 10 mg 06/01/23 01:04 06/03/23 08:23 Oxycodone 5 Mg Tablet PO 10 mg Q4H PRN Administration Pain Sodium Chloride 10 ml 06/04/23 14:10 06/06/23 10:39 Sodium Chloride 0.9 % (Flush) 10 Ml Syringe IVF 10 ml .FLUSH PRN Administration Discontinued Medications Generic Name Dose Route Start Last Admin Trade Name Freq PRN Reason Stop Dose Admin Acetaminophen 325 - 650 mg 05/31/23 22:22 06/02/23 10:34 Acetaminophen 325 Mg Tablet PO 05/31/23 22:23 Not Given ONCE ONE Clindamycin Phosphate 900 mg 05/31/23 21:14 05/31/23 22:44 Clindamycin 900 Mg/50 Ml-D5w IVPB 05/31/23 21:15 900 mg ONCE ONE Administration Clindamycin Phosphate 900 mg 06/01/23 06:00 06/03/23 05:46 Clindamycin 900 Mg/50 Ml-D5w IVPB 900 mg Q8H JYOTI Administration Daptomycin 0 mg 06/04/23 09:00 Daptomycin 50 Mg/Ml Inj IVP DAILY JYOTI Daptomycin 500 mg 06/04/23 09:00 Daptomycin 50 Mg/Ml Inj IVP DAILY [facility] Dexamethasone Confirm 05/31/23 22:56 Dexamethasone 4 Mg/Ml Vial Administered 05/31/23 22:57 Dose 4 mg .ROUTE .STK-MED ONE Ephedrine Sulfate 5 - 10 mg 05/31/23 22:22 Ephedrine Sulfate 5 Mg/Ml Inj IVP Q5M PRN Fentanyl Confirm 05/31/23 21:56 Fentanyl 100 Mcg/2 Ml Inj Administered 05/31/23 21:57 Dose 100 mcg .ROUTE .STK-MED ONE Fentanyl 50 mcg 05/31/23 22:22 Fentanyl 100 Mcg/2 Ml Inj IVP Q5M PRN Hydralazine HCl 10 mg 05/31/23 22:22 Hydralazine Hcl 20 Mg/Ml Inj IVP ONCE PRN Hypertension Hydromorphone HCl 0.5 mg 05/31/23 22:22 Hydromorphone 0.5 Mg/0.5 Ml Inj IVP Q10M PRN Hydromorphone HCl Confirm 05/31/23 22:50 Hydromorphone 0.5 Mg/0.5 Ml Inj Administered 05/31/23 22:51 Dose 0.5 mg .ROUTE .STK-MED ONE Hydroxyzine Pamoate 25 mg 05/31/23 22:22 Hydroxyzine Pamoate 25 Mg Capsule PO ONCE PRN Sodium Chloride 1,000 mls @ 1,000 mls/hr 05/31/23 19:00 06/02/23 10:35 0.9 % Sodium Chloride 1000 Ml IV 05/31/23 19:59 Infused .Q1H JYOTI Infusion Vancomycin HCl 2,000 mg/ 520 mls @ 260 mls/hr 05/31/23 18:59 06/02/23 10:35 Sodium Chloride IVPB 05/31/23 19:00 Infused ONCE ONE Infusion Protocol Ceftriaxone Sodium 1 gm/ 100 mls @ 200 mls/hr 05/31/23 19:00 05/31/23 20:49 Sodium Chloride IVPB Infused Q24H JYOTI Infusion Imipenem/Cilastatin Sodium 1, 250 mls @ 250 mls/hr 05/31/23 21:12 06/02/23 10:34 000 mg/ Sodium Chloride IVPB 05/31/23 21:13 Not Given ONCE ONE Sodium Chloride 1,000 mls @ 125 mls/hr 06/01/23 01:04 06/02/23 10:36 0.9 % Sodium Chloride 1000 Ml IV Not Given .Q8H JYOTI Vancomycin HCl 2,000 mg/ 520 mls @ 260 mls/hr 06/01/23 09:00 06/03/23 11:40 Sodium Chloride IVPB Infused Q12H [facility] Infusion Protocol Sodium Chloride 1,000 mls @ 125 mls/hr 06/02/23 00:04 06/03/23 11:09 0.9 % Sodium Chloride 1000 Ml IV Not Given .Q8H JYOTI Imipenem/Cilastatin Sodium 1, 250 mls @ 250 mls/hr 06/01/23 12:00 06/04/23 10:32 000 mg/ Sodium Chloride IVPB Infused Q8H JYOTI Infusion IV Miscellaneous Supplies 1 each 06/02/23 09:00 06/03/23 08:39 Pharmacist Consult Not Given DAILY [facility] Protocol Ketorolac Tromethamine 15 mg 06/01/23 01:04 06/05/23 21:27 Ketorolac 15 Mg/Ml Inj IVP 06/06/23 01:03 15 mg Q6H PRN Administration Pain Labetalol HCl 5 - 10 mg 05/31/23 22:22 Labetalol Hcl 5 Mg/Ml Inj IVP ONCE PRN Hypertension Lidocaine HCl Confirm 05/31/23 22:56 Lidocaine 2% (Pf) 5 Ml Vial Administered 05/31/23 22:57 Dose 5 ml .ROUTE .STK-MED ONE Lidocaine HCl 50 ml 06/02/23 09:50 06/02/23 11:27 Lidocaine Hcl 4 % Top Soln 50 Ml Bottle TOPICAL 06/02/23 09:51 50 ml ONCE ONE Administration Lorazepam 0.5 mg 06/02/23 10:46 06/04/23 01:35 Lorazepam 0.5 Mg Tablet PO 0.5 mg ONCE PRN Administration anxiety Lorazepam 0.5 mg 06/02/23 10:55 06/02/23 11:23 Lorazepam 2 Mg/Ml Inj IVP 06/02/23 10:56 0.5 mg ONCE ONE Administration Lorazepam 0.5 mg 06/04/23 23:10 Lorazepam 0.5 Mg Tablet PO NIGHTLY PRN Meperidine HCl 12.5 mg 05/31/23 22:22 06/02/23 10:35 Meperidine 25 Mg/Ml Inj IVP 05/31/23 22:23 Not Given ONCE ONE Metoclopramide HCl 10 mg 05/31/23 22:22 06/02/23 10:35 Metoclopramide Hcl 5 Mg/Ml Inj IVP 05/31/23 22:23 Not Given ONCE ONE Midazolam HCl Confirm 05/31/23 21:56 Midazolam Hcl 1 Mg/Ml Inj Administered 05/31/23 21:57 Dose 2 mg .ROUTE .STK-MED ONE Ondansetron HCl Confirm 05/31/23 22:56 Ondansetron 2 Mg/Ml Inj Administered 05/31/23 22:57 Dose 4 mg .ROUTE .STK-MED ONE Phenylephrine HCl 100 mcg 05/31/23 22:22 Phenylephrine 100 Mcg/Ml Syringe IVP Q5M PRN Phenylephrine HCl Confirm 05/31/23 23:07 Phenylephrine 100 Mcg/Ml Syringe Administered 05/31/23 23:08 Dose 1,000 mcg IVP .STK-MED ONE Propofol Confirm 05/31/23 22:56 Propofol 10 Mg/Ml Inj Administered 05/31/23 22:57 Dose 200 mg IVP .STK-MED ONE Rocuronium [place] Confirm 05/31/23 22:56 Rocuronium [place] 10 Mg/Ml Inj Administered 05/31/23 22:57 Dose 50 mg IV .STK-MED ONE Sevoflurane Confirm 05/31/23 22:56 Sevoflurane Soln Administered 05/31/23 22:57 Dose 1 each IH .STK-MED ONE Succinylcholine Chloride Confirm 05/31/23 22:56 Succinylcholine 20 Mg/Ml Inj Administered 05/31/23 22:57 Dose 200 mg IVP .STK-MED ONE Sugammadex Sodium Confirm 05/31/23 23:11 Sugammadex 200 Mg/2ml Inj Administered 05/31/23 23:12 Dose 200 mg IVP .STK-MED ONE Sugammadex Sodium Confirm 05/31/23 23:14 Sugammadex 200 Mg/2ml Inj Administered 05/31/23 23:15 Dose 200 mg IVP .STK-MED ONE Allergies Allergy/AdvReac Type Severity Reaction Status Date / Time amoxicillin Allergy Hives Verified 05/31/23 14:13 Objective - Infectious Disease Objective Vital Signs: Vital Signs - 24 hr 06/05/23 15:25 06/05/23 19:32 06/05/23 23:30 Temperature 98.3 F 97.2 F L 97.2 F L Pulse Rate [Right Pulse Oximeter] 81 84 80 Respiratory Rate 16 16 16 Blood Pressure [Left Arm] 133/65 159/80 H 136/48 L Pulse Oximetry 95 96 95 Oxygen Delivery Method Room Air Room Air Room Air 06/06/23 02:46 06/06/23 07:50 06/06/23 07:50 Temperature 97.1 F L 97.4 F L Pulse Rate [Right Pulse Oximeter] 92 78 78 Respiratory Rate 16 16 16 Blood Pressure [Left Arm] 143/64 H 154/90 H Pulse Oximetry 97 97 Oxygen Delivery Method Room Air Room Air 06/06/23 11:15 Temperature 98.2 F Pulse Rate [Right Pulse Oximeter] 81 Respiratory Rate 16 Blood Pressure [Left Arm] 166/87 H Pulse Oximetry 96 Oxygen Delivery Method Room Air Narrative: Patient was not seen or examined. Results - Infectious Disease Results Labs: 12/06/23 05:45 Blood Blood Culture - Final NO GROWTH AFTER 5 DAYS 06/01/23 05:45 Blood Blood Culture - Final NO GROWTH AFTER 5 DAYS 05/31/23 19:50 Blood Blood Culture - Final NO GROWTH AFTER 5 DAYS 05/31/23 13:35 Blood Blood Culture - Final NO GROWTH AFTER 5 DAYS 06/01/23 00:05 Thigh Left Gram Stain - Final 06/01/23 00:05 Thigh Left Aerobic Culture - Preliminary Staphylococcus lentus Staphylococcus epidermidis Staphylococcus saprophyticus 06/01/23 00:05 Thigh Left Anaerobic Culture - Preliminary Laboratory Tests 06/06/23 06/04/23 06/03/23 Range/Units 07:19 06:20 10:08 WBC 8.64 (4.50-11.00) K/uL RBC 3.79 L (4.00-5.20) m/uL Hgb 11.7 L (12.0-16.0) gm/dL Hct 35.8 (33.0-51.0) % MCV 95 (80-100) fL MCH 31 (26-34) pg MCHC 33 (32-36) gm/dL RDW Coeff of Tyra 13.6 (11.5-15.5) % Plt Count 296 (140-440) K/uL Neut % (Auto) 63.9 (42.0-72.0) % Lymph % (Auto) 20.5 (20-44) % [place] % (Auto) 9.6 (0.0-11.0) % Eos % (Auto) 3.9 (0.0-7.0) % Baso % (Auto) 0.7 (0.0-3.0) % Neut # (Auto) 5.52 (1.7-7.0) K/uL Lymph # (Auto) 1.77 (0.90-2.90) K/uL [place] # (Auto) 0.80 (0.00-0.90) K/UL Eos # (Auto) 0.34 (0.00-0.50) K/uL Baso # (Auto) 0.06 (0.00-0.30) K/uL Abs Immat Gran (auto) 0.12 (0.00-0.30) K/uL Imm/Tot Granulo (auto) 1.4 % Sodium 140 (135-149) mmol/L Potassium 3.8 (3.6-5.1) mmol/L Chloride 108 (96-114) mmol/L Carbon Dioxide 24 (20-32) mmol/L Anion Gap 8 (7-15) mEq/L BUN 5 L (7-30) mg/dL Creatinine 0.5 (0.5-1.5) mg/dL Estimated Creat Clear 142.33 Estimated GFR 113 ml/min Glucose 101 (60-115) mg/dL Lactate (0.5-1.9) mmol/L Calcium 8.5 (8.4-10.6) mg/dL Total Creatine Kinase 38 L (41-117) U/L Stl C. diff Tox B Gene Negative (Negative) Stl C. diff 027-NAP1-BI PRESUMPTIVE NEGATIVE (Negative) Lab Acknowledgement Test Added 06/03/23 06/02/23 06/01/23 Range/Units 06:10 06:28 05:45 WBC 7.47 9.44 17.54 H (4.50-11.00) K/uL RBC 3.39 L 3.42 L 3.68 L (4.00-5.20) m/uL Hgb 10.3 L 10.6 L 11.3 L (12.0-16.0) gm/dL Hct 32.1 L 32.5 L 34.6 (33.0-51.0) % MCV 95 95 94 (80-100) fL MCH 30 31 31 (26-34) pg MCHC 32 33 33 (32-36) gm/dL RDW Coeff of Tyra 13.7 13.6 13.3 (11.5-15.5) % Plt Count 235 216 200 (140-440) K/uL Neut % (Auto) 63.1 69.8 90.5 H (42.0-72.0) % Lymph % (Auto) 22.0 17.9 L 4.2 L (20-44) % [place] % (Auto) 9.6 8.3 4.6 (0.0-11.0) % Eos % (Auto) 4.4 2.5 0.1 (0.0-7.0) % Baso % (Auto) 0.5 0.5 0.2 (0.0-3.0) % Neut # (Auto) 4.71 6.59 15.90 H (1.7-7.0) K/uL Lymph # (Auto) 1.64 1.70 0.70 L (0.90-2.90) K/uL [place] # (Auto) 0.70 0.80 0.80 (0.00-0.90) K/UL Eos # (Auto) 0.33 0.24 0.00 (0.00-0.50) K/uL Baso # (Auto) 0.04 0.05 0.00 (0.00-0.30) K/uL Abs Immat Gran (auto) 0.03 0.09 0.10 (0.00-0.30) K/uL Imm/Tot Granulo (auto) 0.4 1.0 0.4 % Sodium 139 139 137 (135-149) mmol/L Potassium 3.9 3.7 4.0 (3.6-5.1) mmol/L Chloride 111 110 110 (96-114) mmol/L Carbon Dioxide 24 25 22 (20-32) mmol/L Anion Gap 4 L 4 L 5 L (7-15) mEq/L BUN 10 9 9 (7-30) mg/dL Creatinine 0.6 0.6 0.5 (0.5-1.5) mg/dL Estimated Creat Clear 118.61 118.61 142.33 Estimated GFR 108 108 113 ml/min Glucose 96 100 143 H (60-115) mg/dL Lactate (0.5-1.9) mmol/L Calcium 8.0 L 8.0 L 8.0 L (8.4-10.6) mg/dL Total Creatine Kinase 33 L (41-117) U/L Stl C. diff Tox B Gene (Negative) Stl C. diff [id number]-[id number] (Negative) Lab Acknowledgement 05/31/23 05/31/23 Range/Units 18:59 13:35 WBC 17.22 H (4.50-11.00) K/uL RBC 4.12 (4.00-5.20) m/uL Hgb 12.7 (12.0-16.0) gm/dL Hct 38.0 (33.0-51.0) % MCV 92 (80-100) fL MCH 31 (26-34) pg MCHC 33 (32-36) gm/dL RDW Coeff of Tyra 13.3 (11.5-15.5) % Plt Count 231 (140-440) K/uL Neut % (Auto) 81.5 H (42.0-72.0) % Lymph % (Auto) 9.3 L (20-44) % [place] % (Auto) 7.4 (0.0-11.0) % Eos % (Auto) 1.3 (0.0-7.0) % Baso % (Auto) 0.3 (0.0-3.0) % Neut # (Auto) 14.00 H (1.7-7.0) K/uL Lymph # (Auto) 1.60 (0.90-2.90) K/uL [place] # (Auto) 1.30 H (0.00-0.90) K/UL Eos # (Auto) 0.20 (0.00-0.50) K/uL Baso # (Auto) 0.10 (0.00-0.30) K/uL Abs Immat Gran (auto) 0.00 (0.00-0.30) K/uL Imm/Tot Granulo (auto) 0.2 % Sodium 134 L (135-149) mmol/L Potassium 3.5 L (3.6-5.1) mmol/L Chloride 104 (96-114) mmol/L Carbon Dioxide 23 (20-32) mmol/L Anion Gap 7 (7-15) mEq/L BUN 10 (7-30) mg/dL Creatinine 0.5 (0.5-1.5) mg/dL Estimated Creat Clear 142.33 Estimated GFR 113 ml/min Glucose 112 (60-115) mg/dL Lactate 0.9 (0.5-1.9) mmol/L Calcium 8.5 (8.4-10.6) mg/dL Total Creatine Kinase (41-117) U/L Stl C. diff Tox B Gene (Negative) Stl C. diff [id number]-[id number] (Negative) Lab Acknowledgement Assessment and Plan Assessment and Plan Assessment and Plan: 52 F penicillin allergy (rash/hives) had noted last Fel[place] a small bump in her left upper thigh f/b small pimple (? Ingrown hair) later developed fever/chills w/ expanding redness associated with pain prompting telemedicine visit on Tuesday and was prescribed p.o. clindamycin and despite she was not prompting ER evaluation. Was noted to have significant erythema/induration above the knee to the groin associated with 6 cm induration/firmness with a pinpoint opening/purulent/foul-smelling drainage noted leukocytosis 17 K, sodium 134, lactate 0.9, CT left leg (with contrast) suggesting left upper medial thigh possibility of necrotizing tissue. No deeper tissue inflammation/abscess/osteomyelitis. 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 Further the wound was extended no evidence of fascial or muscle involvement. Blunt dissection to define the underlying abscess cavity was thoroughly irrigated. The resulting wound measured 9 x 3 x 4 cm deep. Associated with 3 cm of undermining inferior and 4 cm of undermining staining superior. Clinically has improved and has been able to walk around her room and cellulitis has been receding. General surgery opines no further need of OR debridement (post wound examination) #Left upper thigh necrotizing fasciitis s/p I&D cultures growing 3 staph species #Dyslipidemia #Penicillin allergy listed (has tolerated carbapenems, ceftriaxone in house) Micro 05/31 and 06/01 BCx: NGTD 06/01 OR/L thigh: Aerobic culture with S lentis (R erythromycin, oxacillin), S epidermidis (pansensitive), saprophyticus (R erythromycin, oxacillin). Anaerobic preliminary pending Sepsis resolved with good source control. Today WBC 7.4K, cr 0.6. No evidence of deeper muscle or fascial involvement in the OR. 06/06: Afebrile, no new labs. Clinically stable. Left lower extremity no DVT. S/p Picc line Reccs C/w IV daptomycin 6 mg/kg body weight (will target Staph sp from the OR Cxs), CK WNL levels. Hold statin while on IV daptomycin, can be resumed once off Daptomycin STOP Imipenem (No GNR on OR or Bcx) Discussed with micro lab there was some growth on anaerobic culture and has been sent out which will take another 5-7 more days for results Please add p.o. Flagyl 500 mg TID (pending anaerobic cultures) Tentative plan at least x ~2 weeks (06/01- 06/14) of above antibiotics, and if needed can be extended by x 1 more week of p.o. antibiotics to be determined at outpatient visit. While on IV antibiotics patient will need weekly labs including CBCD, CMP & CK ID will sign off . Plan d/w team in detail
--- NOTE | 2023-06-06 12:54 | REH.OT ---
OT: OT requested to address bathing strategies with pt having questions whether able to shower and modifications to sponge bathe. Spoke with patient, spouse, RN, charge nurse and nsg is clarifying with surgeon whether able to shower. Nsg reports patient able to shower and they are addressing ed with wound vac and dressing management. Patient managing ADLs in room independently per their report and does not present with IP OT needs.
[2023-06-06 13:47] LABS: Basophils Absolute Auto 0.06 K/uL (0.00-0.30); Basophils Percent Auto 0.6 % (0.0-3.0); Eosinophils Absolute Auto 0.36 K/uL (0.00-0.50); Eosinophils Percent Auto 3.4 % (0.0-7.0); Hematocrit 39.6 % (33.0-51.0); Hemoglobin* 12.9 gm/dL (12.0-16.0); Immature Granulocytes Abs Auto 0.15 K/uL (0.00-0.30); Immature Granulocytes Pct Auto 1.4 %; Lymphocytes Absolute Auto 2.15 K/uL (0.90-2.90); Lymphocytes Percent Auto 20.1 % (20-44); Mean Corpuscular HGB Conc 33 gm/dL (32-36); Mean Corpuscular Hemoglobin 31 pg (26-34); Mean Corpuscular Volume 94 fL (80-100); Neutrophils Absolute Auto 7.23 K/uL (1.7-7.0); Neutrophils Percent Auto 67.5 % (42.0-72.0); Platelet Count* 337 K/uL (140-440); RDW Coefficient of Variation % 13.5 % (11.5-15.5); Red Blood Count 4.23 m/uL (4.00-5.20)
[2023-06-06 13:56] LABS: Chloride* 106 mmol/L (96-114); Potassium* 3.6 mmol/L (3.6-5.1); Sodium* 139 mmol/L (135-149)
--- NOTE | 2023-06-06 13:56 | P.DS_ITS ---
DS: Providers Provider Time Seen by Provider: 12:15 Date Seen: 06/06/23 Date of admission: 06/01/23 01:04 Primary care physician: Odalis Sanches MD Admitting Clinician: Mallory Dexter MD Consults: 06/01/23 01:04 Consult to Physician [CONS] Routine Comment: Consulting Provider: Jeferson Fajardo Has provider been notified: Yes 06/03/23 09:20 Consult to Infectious Diseases [CONS] Routine Comment: Consulting Provider: [facility] Consult priority: Routine Has provider been notified: No Call back required?: Yes 06/03/23 10:05 Consult to Infectious Diseases [CONS] Routine Comment: necrotizing fasciitis Consulting Provider: [facility] Consult priority: Routine Has provider been notified: Yes Call back required?: No 06/03/23 10:09 Consult to Public Transit Specialist [CONS] Routine Comment: Reason for Consult:: Discharge Planning Needs 06/06/23 11:59 Consult to Infectious Diseases [CONS] Routine Comment: Consulting Provider: [facility] Consult priority: Routine Has provider been notified: No Call back required?: Yes Attending Physician on discharge: Mallory Dexter MD Date of Discharge: 06/06/23 DS: Diagnosis Discharge Diagnosis (1) Necrotizing soft tissue infection: Status: Acute Problem details: Necrotizing soft tissue infection, left thigh s/p Excision all debridement and washout, left thigh infection; General Anesthesia; EBL 5 cc - has wound VAC. Appreciate General surgery recommendations. Wound VAC will continue at time of discharge. - pain well controlled. -organism one Staphylococcus urealyticus -06/03 ID consulted; see upcoming recommendations -likely will be transitioned to Daptomycin; will need to follow up other cultures; keep in hospital today till all cultures finalized. SW consult for evaluation of home care antibiotic service. Discussed with patient. If decides to go with home care will need picc line. She also is considering coming to infusion center pending antibiotic regimen which is to be determined once all cultures finalized. Per ID hold statin while on Daptomycin. Anticipated two weeks of antibiotic therapy (one week of IV antibiotics followed by oral) - 06/04 initial antibiotics were clindamycin, imipenem, and vancomycin. Yest erday these were switched to imipenem and daptomycin after consultation with Infectious Disease. - wound cultures growing multiple organisms; not all cultures finalized. - 06/[address] Ramirez and appreciate her recommendations: C/w IV daptomycin 6 mg/kg body weight (will target Staph sp from the OR Cxs), CK WNL levels. Hold statin while on IV daptomycin, can be resumed once off Dapt omycin STOP Imipenem (No GNR on OR or Bcx) Discussed with micro lab there was some growth on anaerobic culture and has been sent out which will take another 5-7 more days for results Please add p.o. Flagyl 500 mg TID (pending anaerobic cultures) Tentative plan at least x ~2 weeks (06/01- 06/14) of above antibiotics, and if needed can be extended by x 1 more week of p.o. antibiotics to be determined at outpatient visit. While on IV antibiotics patient will need weekly labs including CBCD, CMP & CK Preliminary culture has come back Actinomyces sp. The other organisms are all various Staph for which we are using Daptomycin daily. We are transitioning to Flagyl po for homegoing pending final anaerobic culture. I will have patient f/u with her PCP and general surgery this week to f/u on final cultures and tailor antibiotics further if needed. She has a PICC and will come to infusion center daily for IV dapto and will take oral flagyl through 06/14/23 pending final culture results. She is getting a CBC, CMP, and CK today and will have those drawn again on 06/13/2023 through the infusion center. (2) Anxiety: Status: Acute Problem details: Likely situational, discussed box breathing and meditate of exercises to calm 1 self. Also discussed self cares. These were helpful and she had a restful night. Hydroxyzine also available for anxiety (3) Hyperlipidemia: Status: Chronic Problem details: Statin on hold while she is on daptomycin. (4) Acute hyponatremia: Status: Resolved DS: Summary Hospital Course Hospital Course: This is a 52-year-old female who had which he thought was an ingrown hair on her left upper thigh in squeezed it, it flattened out, but then became bothersome and she developed chills, body aches, and fatigue. She did a telehealth visit and was started on clindamycin and was instructed to be seen in person. When she came to the ER on 05/31 she felt like she was overall worse and had significant redness and firmness in her left upper thigh extending down toward her knee. She has no history of MRSA or immunodeficiency. CT scan in the emergency department was concerning for necrotizing soft tissue infection for which Dr. Dexter from General surgery was immediately contacted. Patient was taken to the OR for debridement of the necrotic tissue and a wound VAC was placed. She was admitted to the hospital for further care and antibiotics. Her 1st regimen with antibiotics was clindamycin, imipenem, and vancomycin. As cultures have become available ongoing discussion with Infectious Disease has taken place and the antibiotic regimen has changed. She was transitioned to imipenem and daptomycin on Tuesday with the understanding that a final results from the cultures would become available very soon. I received information from the lab today that it could be 3-7 days yet before the final culture becomes available. I did receive a preliminary culture from the anaerobic culture today that says it is an Actinomyces species. I received this after I spoke with Infectious Disease. Again this is only a preliminary result. Infectious Disease has recommended a transition to daptomycin plus oral Flagyl for home going today. Please see their recommendations which I copied over into diagnoses above. Also see diagnoses above for further details. Her statin is on hold while she is on daptomycin. She has a wound VAC in place and a PICC line and is discharged home in improved and stable condition today. She has follow-up with the wound care clinic for dressing changes and an appointment with Dr. Sanches and Dr. Suazo from General surgery for this week. She also has appointments with the infusion center for daptomycin. Time Spent with Patient Time attestation: Total time spent providing and/or coordinating discharge services: Exam Narrative: Exam Narrative: General: No acute distress. Awake, alert, oriented. No pallor. No jaundice. Cardiovascular: Regular rate and rhythm. No murmurs, gallops, or rubs. Respiratory: Clear to auscultation bilaterally. No wheezes or crackles. Abdomen: Bowel sounds present. Soft, nondistended, nontender. Extremities: Erythema and induration her almost completely resolved. Wound VAC remains in place. Const: Vital Signs, click to edit/add: Vital Signs - 24 hr 06/05/23 15:25 06/05/23 19:32 06/05/23 23:30 Temperature 98.3 F 97.2 F L 97.2 F L Pulse Rate [Right Pulse Oximeter] 81 84 80 Respiratory Rate 16 16 16 Blood Pressure [Le ft Arm] 133/65 159/80 H 136/48 L Pulse Oximetry 95 96 95 Oxygen Delivery Me thod Room Air Room Air Room Air 06/06/23 02:46 06/06/23 07:50 06/06/23 07:50 Temperature 97.1 F L 97.4 F L Pulse Rate [Right Pulse Oximeter] 92 78 78 Respiratory Rate 16 16 16 Blood Pressure [Le ft Arm] 143/64 H 154/90 H Pulse Oximetry 97 97 Oxygen Delivery Me thod Room Air Room Air 06/06/23 11:15 Temperature 98.2 F Pulse Rate [Right Pulse Oximeter] 81 Respiratory Rate 16 Blood Pressure [Le ft Arm] 166/87 H Pulse Oximetry 96 Oxygen Delivery Me thod Room Air DS: Data Data Completed and Pending Completed studies during hospitalization: Ordering Physician: Stan Le M.D. Date of Service: 05/31/23 Procedure(s): CT femur LT w con Accession Number(s): [id number] cc: Zaynab Carroll M.D.; Stan Le M.D.~ For Patients: As a result of the Cures Act, medical imaging exams and procedure reports are released immediately into your electronic medical record. You may view this report before your referring provider. If you have questions, please contact your health care provider. Indication: Left thigh swelling and redness. Technique: CT extremity left femur with 137 cc Isovue 370 IV contrast. Comparison: None. Findings: There is medial skin thickening superiorly in the left leg with subcutaneous edema. Subcutaneous air also present in the upper medial 5. No deep tissue inflammation. No fluid collection to suggest abscess. No sign of osteomyelitis or other osseous abnormality. Impression: Cellulitis in the upper medial left thigh with subcutaneous edema and air suggesting the possibility of necrotizing tissue. No deep tissue inflammation and no abscess. Please note that all CT scans at this facility use dose modulation, iterative reconstruction, and/or weight-based dosing when appropriate to reduce radiation dose to as low as reasonably achievable. Dictated by Sebastien Kumar MD @ 05/31/2023 10:35:08 PM (Electronically Signed) Ordering Physician: Tess Stevens M.D. Date of Service: 06/03/23 Procedure(s): XR chest PICC placement conf Accession Number(s): [id number] cc: Tess Stevens M.D.; Zaynab Carroll M.D.~ For Patients: As a result of the Cures Act, medical imaging exams and procedure reports are released immediately into your electronic medical record. You may view this report before your referring provider. If you have questions, please contact your health care provider. INDICATION: PICC line placement. TECHNIQUE: Chest 1 view. COMPARISON: None. FINDINGS: Cardiovascular and mediastinum: Heart size and vasculature are normal in caliber and appearance. Right upper extremity PICC tip projects near the cavoatrial junction. Lungs and pleural spaces: Lungs are clear. No sign of infiltrate or mass. No sign of pleural effusion. No pneumothorax. Bones and soft tissues: No significant findings. IMPRESSION: Satisfactory position of right upper extremity PICC with its tip projecting near the cavoatrial junction. Dictated by Avni Villaseñor MD @ 06/03/2023 7:25:00 PM (Electronically Signed) Ordering Physician: Tess Stevens M.D. Date of Service: 06/03/23 Procedure(s): US PICC placement w img Accession Number(s): [id number] cc: Tess Stevens M.D.; Zaynab Carroll M.D.~ For Patients: As a result of the s Act, medical imaging exams and procedure reports are released immediately into your electronic medical record. You may view this report before your referring provider. If you have questions, please contact your health care provider. Indication: PICC placement Technique: Grayscale ultrasound of the right internal jugular vein and right basilic vein. IMPRESSION: Sonographic guidance for right arm PICC line placement. Dictated by Dg Nieto MD @ 06/05/2023 2:24:08 PM (Electronically Signed) Ordering Physician: Keyanna Ferris M.D. Date of Service: 06/05/23 Procedure(s): US venous LE LT Accession Number(s): [id number] cc: Zaynab Carroll M.D.; Keyanna Ferris M.D.~ For Patients: As a result of the s Act, medical imaging exams and procedure reports are released immediately into your electronic medical record. You may view this report before your referring provider. If you have questions, please contact your health care provider. INDICATION: Left leg swelling that the medication Motrin and Tylenol but uterine him to present the main Rafat TECHNIQUE: A compression venous ultrasound exam was performed of the left lower extremity using lea-scale imaging, color Doppler and spectral Doppler analysis. FINDINGS: Sonographic imaging of the left lower extremity demonstrates normal compressibility and color Doppler venous blood flow within the common femoral vein, deep femoral vein, and the proximal greater saphenous vein. Within the thigh, the femoral vein is patent and compressible. At a lower level, the popliteal and posterior tibial veins also show normal compressibility and color Doppler venous blood flow. Limited imaging of the contralateral groin demonstrates a normal spectral waveform and color Doppler venous blood flow within the right common femoral vein. IMPRESSION: No evidence of deep vein thrombosis within the left lower extremity. Dictated by Alexsandra Pretty MD @ 06/05/2023 4:02:29 PM (Electronically Signed) Labs on day of discharge: Labs from last 24 hours 06/06/23 06/06/23 13:30 07:19 WBC Pending RBC Pending Hgb Pending Hct Pending MCV Pending MCH Pending MCHC Pending Plt Count Pending Neut % (Auto) Pending Lymph % (Auto) Pending Storey % (Auto) Pending Eos % (Auto) Pending Baso % (Auto) Pending Neut # (Auto) Pending Lymph # (Auto) Pending Storey # (Auto) Pending Eos # (Auto) Pending Baso # (Auto) Pending Sodium Pending Potassium Pending Chloride Pending Carbon Dioxide Pending Anion Gap Pending BUN Pending Creatinine Pending Estimated GFR Pending Glucose Pending Calcium Pending Total Bilirubin Pending AST Pending ALT Pending Alkaline Phosphatase Pending Total Creatine Kinase Pending Total Protein Pending Albumin Pending Stl C. diff Tox B Gene Negative Stl C. diff [id number] PRESUMPTIVE NEGATIVE Preliminary micro results at discharge 06/01/23 00:05 Aerobic Culture - Preliminary Thigh Left Staphylococcus lentus Staphylococcus epidermidis Staphylococcus saprophyticus Anaerobic Culture - Preliminary Discharge Plan Discharge Disposition: Home, Self-Care Date of Admission: 06/01/23 01:04 Attending Provider on Discharge: Mallory Dexter Consulting Providers: Jeferson Fajardo Primary Care Provider: Zaynab Carroll Condition: Improved Anticipated Discharge Date/Time: 06/04/23 11:06 Discharge Medications: New oxycodone 5 mg tablet 5 mg PO Q6H PRN (Reason: pain) Qty: 20 0RF senna 8.6 mg capsule 8.6 mg PO DAILY PRN (Reason: constipation) Qty: 90 0RF lidocaine 4 % aerosol,spray 1 ea topical PRN Qty: 113 0RF Rx Instructions: [place] solution on the dressings/wound as needed for dressing changes to assist with pain control. ibuprofen 600 mg Tablet 600 mg PO Q8H PRN (Reason: Pain) Qty: 60 0RF hydroxyzine pamoate 25 mg Capsule 25 mg PO Q4H PRN (Reason: Anxiety) Qty: 30 0RF Lactobacillus acidophilus 0.5 mg (100 million cell) Tablet 100 mmu cells PO TIDWM 30 Days Qty: 90 0RF metronidazole 500 mg Tablet 500 mg PO TID 9 Days Qty: 27 0RF Held rosuvastatin 10 mg tablet 10 mg PO HS Hold Instructions: Resume on 06/17/23. Discontinued clindamycin HCl 300 mg capsule 300 mg PO 3XD Discharge Orders: Discharge Order (Routine); Ordered 06/06/23 Ordered By: Keyanna Ferris Patient Education: Lidocaine (On the skin), Oxycodone, Rapid Release (By mouth), Senna (By mouth) (Sen, Senna-lax), Cellulitis (GEN) Additional Instructions: * We will set you up with Daptomycin daily through the infusion center. This will be given through the PICC line that you have in place already. They will do labs at the infusion center on . * Do not take rosuvastatin until you are finished getting daptomycin. * Avoid alcohol while taking Flagyl/metronidazole. * Stop clindamycin. * Follow up with your PCP and general surgery this week to follow up on the anaerobic wound culture results and to discuss if the current antibiotic regimen needs to be adjusted based on the results. Wound Care: You have a Wound Vac in place. This will need to be changed 3x weekly at the [facility]. You will be contacted to make nursing appointments for Tuesday/Tuesday/Tuesday. Make sure to bring all supplies to the appointments. The current wound vac you have in place is temporary and should be disposed of by the clinic after 7 days. A home wound vac system has been ordered through your insurance company and will be sent to your house. Once you have these suppl ies you should change to this more permanent system. If you experience a leak or loose suction try to patch the area with the extra supplies. If there is a blockage then evaluate the tube system. Call the [facility] clinic with any questions or concerns. If the wound vac malfunctions and is not working after clinic hours, it can be removed and I would recommend placing a temporary dressing until you can be seen by a provider. Follow up: Please make an appointment with your primary care provider within a week of discharge to evaluate the wound. If she has any concerns she may refer you to one of my General Surgery partners or the Wound Center at [facility]. This wound should heal in the next 4-6 weeks, although this can take longer due to your smoking history. Activity Level: Activity as Tolerated Activity Detail: Return to the Infusion center at [facility] on 06/07/23 at 11:00 am for IV antibiotic. [place] at director of front office upon arrival. Arrive 15 minutes prior to appointment (10:45 am). Call [phone] with questions about appointment. Discharge Diet: Regular Diet Detail: Supplement your diet with protein shakes. Protein helps with the healing process. Follow Up Appointments: Kristine Leyva PA-C [Referring] - (NOTE: Patient sees ODALIS Estevez. Please have her follow up with her at the [facility]. ) Casie Key MD [Staff Physician] - 06/14/23 4:45 pm ([facility] for follow-up.) Forms: Work/School Release, Turned On Digital Info Instructions
[2023-06-06 13:59] LABS: Alanine Aminotransferase* 25 U/L (4-35); Alkaline Phosphatase* 67 U/L (40-150); Anion Gap 10 mEq/L (7-15); Aspartate Amino Transferase* 32 U/L (12-35); Bilirubin Total* 0.3 mg/dL (0.1-1.5); Blood Urea Nitrogen* 11 mg/dL (7-30); Carbon Dioxide* 23 mmol/L (20-32); Creatinine* 0.6 mg/dL (0.5-1.5); Est. Creatinine Clearance* 118.61; Estimated Glomerular Filt Rate 108 ml/min; Glucose* 110 mg/dL (60-115); Total Protein* 7.1 g/dL (6.0-8.3)
[2023-06-06 14:10] LABS: Slide Review Reflex No
[2023-06-06] MEDS: metroNIDAZOLE 500 MG TABLET PO (14:49)
[2023-06-06 15:08] LABS: Creatine Kinase* 54 U/L (41-117)
[2023-06-06 15:15] VITALS: PULSE 81; RESP 16
[2023-06-06] MEDS: hydrOXYzine pamoate 25 MG CAPSULE PO (16:50)
[2023-06-06] MEDS: OXYCODONE 5 MG TABLET PO (16:50)
--- NOTE | 2023-06-06 18:58 | PC.NURSE ---
discharge. pt and are very pleasant, is loving and caring. alert x4. pain ok and she got meds before dressing changed. she had a shower. she left with a picc line. Pt independent in room and hallways. Pt up walking in hallways multiple times throughout shift. Pt?s wound vac intact; @ 125 Pt?s cellulitis has receded and not extended past drawn lines.?went over discharge packet with pt and . went over medications. appointments education and instructions. pt went over and signed personal belonging sheet. she got a w/c ride to car. with all belongings and paperwork
== END 2023-06-06 18:30 | disposition home or self-care (01) | DRG 344 ==
LOC: ED 21:44 → SS 22:03 → MEDSURG 06-01 00:57 → SS 06-01 10:58 → MEDSURG 06-01 10:58
PROVIDERS: Family Medicine; Hospitalist; Admitting Provider Surgery; Emergency Provider Emergency Medicine; PCP Internal Medicine; Visit Provider Surgery
PROC: 0JBM0ZZ Excision of Left Upper Leg Subcutaneous Tissue and Fascia, Open Approach (ICD-10-PCS; principal; 2023-05-31 22:30)
DX: M72.6 Necrotizing fasciitis (principal); E87.1 Hypo-osmolality and hyponatremia; L03.116 Cellulitis of left lower limb; E78.5 Hyperlipidemia, unspecified; F17.210 Nicotine dependence, cigarettes, uncomplicated; F41.9 Anxiety disorder, unspecified; B95.7 Other staphylococcus as the cause of diseases classified elsewhere; B96.89 Other specified bacterial agents as the cause of diseases classified elsewhere
CPT/HCPCS: 00400; 36415; 36573; 73701; 80048; 80053; 82550; 83605; 85025; 87040; 87070; 87075; 87076; 87181; 87186; 87205; 87493; 93971; 99140; 99285; A9270; C1751; J0330; J0696; J0743; J0878; J1100; J1170; J1200; J1650; J1885; J2060; J2250; J2371; J2405; J2704; J3010; J3370; J3490; J7030; J7050; J7120; Q9967; S0077

== ENCOUNTER 2023-06-15 11:00 | Outpatient (RCR) | payer BC, SELFPAY ==
[2023-06-07 11:05] VITALS: BP 143/77; PULSE 94; RESP 16; TEMP 35.9; O2SAT 94
[2023-06-07] MEDS: DAPTOmycin 50 MG/ML inj 500 MG IVP (11:48)
[2023-06-08 11:00] VITALS: BP 152/81; PULSE 84; RESP 16; TEMP 36.1; O2SAT 96
[2023-06-08] MEDS: DAPTOmycin 50 MG/ML inj 500 MG IVP (11:02)
--- NOTE | 2023-06-08 20:53 | PC.NURSE ---
Patient arrived to room 260 with . Dressing removed, wound vac packing removed with normal saline. New piece of dressing placed in wound, wound vac bridge to left of opening. Upon turning on vac, pressure reads 125 continuous mm, wound bed appears to have great suction. Vac is slightly louder than expected. Called rep guzman and she said this is to be expected as it is a more powerful vac in comparison to vacvia that was removed. Patient to call rep with any issues/questions. Reviewed this, trouble shooting, vac instructions, etc with patient and , no further questions.
[2023-06-09 11:02] VITALS: BP 135/63; PULSE 82; RESP 16; TEMP 36; O2SAT 97
[2023-06-09] MEDS: DAPTOmycin 50 MG/ML inj 500 MG IVP (11:56)
[2023-06-10] MEDS: DAPTOmycin 50 MG/ML inj 500 MG IVP (11:10)
[2023-06-11 10:56] VITALS: BP 139/89; PULSE 86; RESP 20; TEMP 36.7; O2SAT 96
[2023-06-11] MEDS: DAPTOmycin 50 MG/ML inj 500 MG IVP (10:58)
--- NOTE | 2023-06-11 11:32 | PC.NURSE ---
Here for Dapto infusion. Tolerated infusion without difficulty.
[2023-06-11 13:00] VITALS: BP 135/68; PULSE 79; RESP 18; TEMP 36.2; O2SAT 96
[2023-06-11 13:10] VITALS: BP 140/67; PULSE 81; RESP 18; TEMP 36.2; O2SAT 97
[2023-06-12] MEDS: DAPTOmycin 50 MG/ML inj 500 MG IVP (11:00)
[2023-06-13 11:22] LABS: Basophils Absolute Auto 0.07 K/uL (0.00-0.30); Basophils Percent Auto 0.8 % (0.0-3.0); Eosinophils Absolute Auto 0.16 K/uL (0.00-0.50); Eosinophils Percent Auto 1.8 % (0.0-7.0); Hematocrit 40.8 % (33.0-51.0); Hemoglobin* 13.2 gm/dL (12.0-16.0); Immature Granulocytes Abs Auto 0.04 K/uL (0.00-0.30); Immature Granulocytes Pct Auto 0.5 %; Lymphocytes Absolute Auto 1.86 K/uL (0.90-2.90); Lymphocytes Percent Auto 21.5 % (20-44); Mean Corpuscular HGB Conc 32 gm/dL (32-36); Mean Corpuscular Hemoglobin 30 pg (26-34); Mean Corpuscular Volume 93 fL (80-100); Monocytes Percent Auto 7.8 % (0.0-11.0); Neutrophils Absolute Auto 5.86 K/uL (1.7-7.0); Neutrophils Percent Auto 67.6 % (42.0-72.0); Platelet Count* 286 K/uL (140-440); RDW Coefficient of Variation % 13.1 % (11.5-15.5); Red Blood Count 4.37 m/uL (4.00-5.20); White Blood Count* 8.67 K/uL (4.50-11.00)
[2023-06-13 11:25] LABS: Slide Review Reflex No
[2023-06-13] MEDS: DAPTOmycin 50 MG/ML inj 500 MG IVP (11:31)
[2023-06-13 11:45] LABS: Albumin* 4.2 g/dL (3.3-5.0); Chloride* 103 mmol/L (96-114); Sodium* 135 mmol/L (135-149)
[2023-06-13 11:46] LABS: Potassium* 4.2 mmol/L (3.6-5.1)
[2023-06-13 11:48] LABS: Alanine Aminotransferase* 24 U/L (4-35); Alkaline Phosphatase* 76 U/L (40-150); Anion Gap 6 mEq/L (7-15); Aspartate Amino Transferase* 24 U/L (12-35); Bilirubin Total* 0.3 mg/dL (0.1-1.5); Blood Urea Nitrogen* 14 mg/dL (7-30); Calcium* 9.3 mg/dL (8.4-10.6); Carbon Dioxide* 26 mmol/L (20-32); Creatine Kinase* 51 U/L (41-117); Creatinine* 0.6 mg/dL (0.5-1.5); Estimated Glomerular Filt Rate 108 ml/min; Glucose* 108 mg/dL (60-115); Total Protein* 7.1 g/dL (6.0-8.3)
[2023-06-14 10:58] VITALS: BP 99/66; PULSE 87; RESP 16; TEMP 35.5; O2SAT 97
[2023-06-14] MEDS: DAPTOmycin 50 MG/ML inj 500 MG IVP (11:09)
[2023-06-15 14:01] VITALS: BP 137/77; PULSE 97; RESP 16; TEMP 36; O2SAT 97
[2023-06-15] MEDS: SODIUM CHLORIDE 0.9 % (FLUSH) 10 ML SYRINGE IVF (15:26)
== END 2023-12-04 23:59 | disposition home or self-care (01) ==
LOC: CCIC 11:00
PROVIDERS: PCP Internal Medicine; Referring Provider Family Medicine; Visit Provider Family Medicine
DX: M79.89 Other specified soft tissue disorders (principal)
CPT/HCPCS: 36415; 36589; 80053; 82550; 85025; 96365; 96374; 96376; 99211; J0878

== ENCOUNTER 2023-06-25 11:08 | Emergency (ER) | payer BC, SELFPAY ==
[2023-06-25 11:35] VITALS: BP 167/94; PULSE 89; RESP 16; TEMP 36.8; O2SAT 98; BMI 41.6
--- NOTE | 2023-06-25 12:25 | ED.NURSE ---
M/S nurse called to assess wound vac.
--- NOTE | 2023-06-25 12:26 | ED.GENADULT ---
HPI - General Adult General Chief complaint: Unspecified Complaint, Adult Stated complaint: Malfunctioning wound vac Time Seen by Provider: 06/25/23 12:01 Source: patient, RN notes reviewed and old records reviewed Mode of arrival: ambulatory Limitations: no limitations History of Present Illness HPI narrative: Patient is a 52-year-old woman who presents with a problems with her wound VAC. She was admitted to the hospital on May 31 with a necrotizing infection in her left thigh for which he was taken to the operating room for debridement and washout. She was maintained on couple of different antibiotics at time of discharge as well as her wound VAC. She says that Dr. Key has been changing the wound VAC to on Tuesdays and the [facility] nurses do it on Fridays. At changed yesterday and today she is having leaking from underneath the dressing, and the wound VAC is not pulling out any material. There are not been any alarms on the wound VAC. She says she has had some problems with skin redness and a little bit of breakdown/irritation from the adhesives, and she thinks that they tried to put a smaller dressing on yesterday to avoid the reddened areas. The dressing has now lifted from the posterior medial thigh, and they were not sure how to fix it. She has no other complaints. Related Data Home Medications Medication Instructions Recorded Confirmed rosuvastatin 10 mg tablet 10 mg PO HS 05/31/23 06/25/23 Previous Rx's Medication Instructions Recorded lidocaine 4 % topical spray 1 ea topical PRN Dressing changes 06/03/23 #113 grams oxycodone 5 mg tablet 5 mg PO Q6H PRN pain #20 tabs 06/03/23 sennosides 8.6 mg capsule (senna) 8.6 mg PO DAILY PRN constipation 06/03/23 #90 caps Lactobacillus acidophilus 0.5 mg 100 mmu cells PO TIDWM 1 month #90 06/06/23 (100 million cell) tablet tabs hydroxyzine pamoate 25 mg capsule 25 mg PO Q4H PRN Anxiety #30 caps 06/06/23 ibuprofen 600 mg tablet 600 mg PO Q8H PRN Pain #60 tabs 06/06/23 metronidazole 500 mg tablet 500 mg PO TID 9 days #27 tabs 06/06/23 Allergies Allergy/AdvReac Type Severity Reaction Status Date / Time amoxicillin Allergy Hives Verified 06/25/23 11:38 Review of Systems Status of ROS: Reports: 6 or more systems reviewed and unremarkable except as noted in History and below PFSH [facility] Medical History Hyperlipidemia ?E78.5 - Hyperlipidemia, unspecified (ICD-10) Social History What is your current living situation?: I presently have a place to live Problems where you live: no known problems Problems where you live details: N/A In the past 12 months, utilities in danger of being shut off: no In past 12 months, lack of transportation kept you from medical appts, meetings, work, or getting things needed for daily living: no In the past 12 mos, have been you worried that your food would run out before you had money to buy more?: never true In the past 12 mos, the food you bought just didn't last and you didn't have money to buy more?: never true Highest level of school completed/degree received: GED or equivalent Smoking Status: Current every day smoker What tobacco products do you use: cigarettes Smoking packs per day: 1 Smoking cigarettes per day: 20.0 Years smoked: 30 Smoking pack-years: 30.00 Second hand tobacco smoke exposure: No How often do you have a drink containing alcohol: monthly or less Alcohol type: other Alcohol type details: ... How many standard drinks containing alcohol do you have on a typical day: 1 or 2 How often do you have six or more drinks on one occasion: Never AUDIT-C Alcohol total score: 1 Non-prescribed substance use: denies use Caffeine: Yes How often does anyone, including family, friends and others, physically hurt you: never How often does anyone, including family, friends and others, insult or talk down to you: never How often does anyone, including family, friends and others, threaten you with harm: never How often does anyone, including family, friends and others, scream or curse at you: rarely service: No Exam Narrative: Exam Narrative: Vital signs reviewed In general, alert, nontoxic woman. Extremities: Examination of the left upper leg shows a wound VAC in place, the Tegaderm like dressing has lifted along 1/4 of the edge and there is some drainage noted on the bed underneath her. There is some mild surrounding erythema come other some evidence of dermatitis around the edges of the bandage. Const: Vital Signs, click to edit/add: Vital Signs - 24 hr 06/25/23 11:35 Temperature 98.3 F Pulse Rate [Pulse Oximeter] 89 Respiratory Rate 16 Blood Pressure [Le ft Upper Arm] 167/94 H Pulse Oximetry 98 Oxygen Delivery Me thod Room Air Documenting provider has reviewed patient's vital signs: yes Course Course ED Course: Wound was evaluated by the [facility] nurses and they spoke with Dr. Stevens. Dr. Stevens recommended replacing the wound VAC as best as possible, will also send her home with wet to dry dressing materials if the wound VAC breaks down again. She has an appointment on Tuesday, 3 days from now, to see Dr. Key in clinic. Return at any time for acute problems. Vital Signs Vital signs: Initial Vital Signs Temperature 98.3 F 06/25/23 11:35 Temperature Source Temporal Artery Scan 06/25/23 11:35 Pulse Rate 89 06/25/23 11:35 Respiratory Rate 16 06/25/23 11:35 Blood Pressure 167/94 H 06/25/23 11:35 Blood Pressure Mean 118 H 06/25/23 11:35 Blood Pressure Position Sitting 06/25/23 11:35 Pulse Oximetry 98 06/25/23 11:35 Oxygen Delivery Method Room Air 06/25/23 11:35 Vital Signs Temperature 98.3 F 06/25/23 11:35 Pulse Rate 89 06/25/23 11:35 Respiratory Rate 16 06/25/23 11:35 Blood Pressure 167/94 H 06/25/23 11:35 Pulse Oximetry 98 06/25/23 11:35 Oxygen Delivery Method Room Air 06/25/23 11:35 Temperature 98.3 F 06/25/23 11:35 Pulse Rate 89 06/25/23 11:35 Respiratory Rate 16 06/25/23 11:35 Blood Pressure 167/94 H 06/25/23 11:35 Pulse Oximetry 98 06/25/23 11:35 Oxygen Delivery Method Room Air 06/25/23 11:35 Discharge Plan Discharge Clinical Impression: Encounter for management of wound VAC Patient Disposition: Home, Self-Care Condition: Stable Additional Instructions: Wound VAC or wet to dry dressings as discussed. Surgery follow-up on Tuesday as planned. Return at any time for other difficulties. Prescriptions: No Action rosuvastatin 10 mg tablet 10 mg PO HS Hold Instructions: Resume on 06/17/23. oxycodone 5 mg tablet 5 mg PO Q6H PRN (Reason: pain) Qty: 20 0RF senna 8.6 mg capsule 8.6 mg PO DAILY PRN (Reason: constipation) Qty: 90 0RF lidocaine 4 % aerosol,spray 1 ea topical PRN Qty: 113 0RF Rx Instructions: [place] solution on the dressings/wound as needed for dressing changes to assist with pain control. ibuprofen 600 mg Tablet 600 mg PO Q8H PRN (Reason: Pain) Qty: 60 0RF hydroxyzine pamoate 25 mg Capsule 25 mg PO Q4H PRN (Reason: Anxiety) Qty: 30 0RF Lactobacillus acidophilus 0.5 mg (100 million cell) Tablet 100 mmu cells PO TIDWM 30 Days Qty: 90 0RF metronidazole 500 mg Tablet 500 mg PO TID 9 Days Qty: 27 0RF Follow Up/Referrals: Zaynab Carroll MD [Staff Physician] - Stand Alone Forms: MyHealth Info Instructions
[2023-06-25 13:15] VITALS: BP 167/94; PULSE 89; RESP 16; TEMP 36.8
== END 2023-06-25 14:35 | disposition home or self-care (01) ==
PROVIDERS: Emergency Provider Emergency Medicine
DX: Z48.00 Encounter for change or removal of nonsurgical wound dressing (principal)
CPT/HCPCS: 99283

== ENCOUNTER 2023-11-09 14:04 | Outpatient (CLI) | payer BC, SELFPAY | END 2023-11-09 14:05 | disposition home or self-care (01) | LOC: NFLDREF 11-10 06:47 | PROVIDERS: PCP Physician Assistant Medical; Referring Provider Physician Assistant Medical; Visit Provider Obstetrics & Gynecology | DX: R35.0 Frequency of micturition (principal) | CPT/HCPCS: 87086 ==